=== PATIENT | male | born 1970 | race Caucasian/White ===

== ENCOUNTER 2020-08-23 14:51 | Emergency (ER) | payer SELFPAY ==
[2020-08-23 14:53] VITALS: BP 143/69; PULSE 98; RESP 16; TEMP 37.3; O2SAT 98; BMI 25.7
--- NOTE | 2020-08-23 15:05 | ED_ITS ---
HPI - Skin/Abscess/Foreign Bdy General Chief complaint: Skin/Abscess/Foreign Body Stated complaint: LEFT ARM INFECTION Time Seen by Provider: 08/23/20 15:05 Source: patient Mode of arrival: Ambulatory Limitations: no limitations History of Present Illness HPI narrative: 50-year-old male smoker with history of IV drug abuse presents with the chief complaint of some redness, pain and swelling in his right arm. He states that he has had some small sores without abscess or drainage on his right arm for a few days and also a few days ago he was attempting to inject and thinks he missed the vein. He denies any systemic findings such as fever, chills nor nausea or vomiting. He denies any circumferential involvement but states upon waking this morning it had traveled bit from his right forearm up his arm. He is not dizzy nor weak or lightheaded. He has no chest pain or shortness of breath. MD complaint: other Onset (ago): hour(s) Related Data Previous Rx's Medication Instructions Recorded ferrous sulfate 300 mg PO BID #60 dose 11/21/16 hydrocodone-acetaminophen 10 - 20 ml PO Q4HP PRN #300 ml 11/21/16 ljbdvils-rwn-wpcufab gluconate 9 mg PO QDAY #30 dose 11/21/16 [multivitamin with minerals] doxycycline hyclate 100 mg PO BID #20 tab 08/23/20 Allergies Allergy/AdvReac Type Severity Reaction Status Date / Time Sulfa (Sulfonamide Allergy Mild RASH Unverified 08/23/20 14:57 Antibiotics) [SULFA (SULFONAMIDE ANTIBIOTICS)] carbidopa [From SINEMET] AdvReac Mild JERKY LEG Unverified 08/23/20 14:57 MOVEMENTS levodopa [From SINEMET] AdvReac Mild JERKY LEG Unverified 08/23/20 14:57 MOVEMENTS Review of Systems Constitutional Constitutional: Denies chills, Denies fatigue, Denies fever(s), Denies frequent falls, Denies lethargy and Denies weakness Eyes Eyes: Denies change in vision, Denies eye discharge, Denies irritation and Denies loss of vision ENT Ears, Nose, Mouth, and Throat: Denies change in voice, Denies dizziness, Denies neck pain, Denies sore throat and Denies throat swelling Cardiovascular Cardiovascular: Denies chest pain, Denies irregular heart rhythm, Denies lightheadedness, Denies palpitations, Denies dyspnea, Denies dyspnea on exertion and Denies orthopnea Respiratory Respiratory: Denies cough, Denies dyspnea, Denies dyspnea on exertion and Denies wheezing Gastrointestinal Gastrointestinal: Denies abdominal pain, Denies change in bowel habits, Denies diarrhea, Denies nausea and Denies vomiting Musculoskeletal Musculoskeletal: Denies neck pain and Denies numbness Integumentary/Breasts Skin/Breast: Denies pruritus, Reports erythema, Denies rash, Reports skin pain, Reports skin swelling and Denies wounds Neurologic Neurologic: Denies behavioral changes, Denies confusion, Denies dizziness, Denies frequent falls, Denies loss of vision, Denies numbness and Denies weakness Psychiatric Psychiatric: Denies anxiety, Denies behavioral changes, Denies confusion, Denies depression, Denies homicidal ideation and Denies suicidal ideation Endocrine Endocrine: Denies fatigue, Denies flushing and Denies palpitations Hematologic/Lymphatic Hematologic/Lymphatic: Denies easy bruising Allergic/Immunologic Allergic/Immunologic: Denies urticaria, Denies throat swelling and Denies wheezing Patient History Social History Smoking Status: Current every day smoker Smoking Status: Current every day smoker Substance Use Type: heroin and IV drugs Exam Narrative Exam Narrative: GENERAL: [50] year old patient appears stated age. Well- developed patient, in mild distress. HEAD: Atraumatic. Normocephalic. EYES: Pupils equal round and reactive. Extraocular motions intact. No scleral icterus. No injection or drainage. ENT: Nose without bleeding, purulent drainage. Throat without erythema, tonsillar hypertrophy or exudate. Airway patent. NECK: Trachea midline. Non tender CARDIOVASCULAR: Regular rate and rhythm without murmurs, gallops, or rubs. RESPIRATORY: Clear to auscultation. Breath sounds equal bilaterally. No wheezes, rales, or rhonchi. GASTROINTESTINAL: Abdomen soft, non-tender, nondistended. EXTREMITIES: No edema or joint tenderness. BACK: Nontender without deformity or crepitance. No flank tenderness. NEURO: AOx3. SKIN: Multiple small skin excoriations and wounds, particularly on hands and forearms, none with fluctuance or active drainage. Initial Vital Signs Initial Vital Signs: Vital Signs Temperature 99.1 F 08/23/20 14:53 Pulse Rate 98 H 08/23/20 14:53 Respiratory Rate 16 08/23/20 14:53 Blood Pressure 143/69 H 08/23/20 14:53 Pulse Oximetry 98 08/23/20 14:53 Course Vital Signs Vital signs: Vital Signs - 8 hr 08/23/20 14:53 08/23/20 15:22 Temperature 99.1 F 97.9 F Pulse Rate 98 H 95 H Respiratory Rate 16 16 Blood Pressure 143/69 H 123/67 Pulse Oximetry 98 98 MDM - Skin/Abscess/Foreign Bdy MDM Narrative Medical decision making narrative: Patient with obvious infection, history of IV drug abuse and no systemic findings, no suggestion of sepsis. No palpable induration, fluctuance or other suggestion of need for incision and drainage. Extensive return precautions given and questions answered to his apparent satisfaction Discharge Plan Departure Patient Disposition: Home Clinical Impression: Cellulitis of arm, right Instructions: DI for Cellulitis -- Adult Activity Restrictions/Additional Instructions: *You have been diagnosed with [superficial cellulitis of the right arm, no evidence of abscess.] *What to do: *Please continue to take your regular medications as directed. [ x] New medication prescriptions sent to your pharmacy: [[facility] in [place]] [ ] New medication written as a paper prescription [ ] No new medications given *Please follow up with your primary care provider in 2-3 days, call for an appointment. Let them know you were seen in the Emergency Department and that we ask that you be seen in follow up. We will electronically transmit a record of today's note if your PCP is in our system *If you do not have a primary care provider please contact the [facility] Resource line at [phone]. They will ask some questions about your medical history and help get you set up with a doctor in the community. *Return to Emergency Department if you should have any new, worsening or concerning symptoms, such as [fever greater than 101 F, shaking chills, worsening pain, persistent vomiting, significant worsening of the redness, if the redness and swelling wraps all the way around your upper arm, forearm or involved your hand or other bothersome symptoms] Prescriptions: New doxycycline hyclate 100 mg tablet 100 mg PO BID Qty: 20 RF: 0 No Action ferrous sulfate 300 MG/5 ML liquid 300 mg PO BID Qty: 60 RF: 1 qclsvatn-pfe-ygqntdu gluconate [multivitamin with minerals] 9 MG/15 ML liquid 9 mg PO QDAY Qty: 30 RF: 0 hydrocodone-acetaminophen 7.5 MG/325 MG solution 10 - 20 ml PO Q4HP PRNQty: 300 RF: 0 Referrals: Bonifacio Beach MD [Primary Care Provider] -
--- NOTE | 2020-08-23 15:21 | PC.NURSE ---
Marked cellulitis edges, right upper arm inner, from elbow to axilla.
[2020-08-23 15:22] VITALS: BP 123/67; PULSE 95; RESP 16; TEMP 36.6; O2SAT 98
== END 2020-08-23 15:22 | disposition home or self-care (01) ==
PROVIDERS: Emergency Provider Emergency Medicine; Family Provider Internal Medicine; PCP Internal Medicine
DX: L03.113 Cellulitis of right upper limb (principal)
CPT/HCPCS: 99281

== ENCOUNTER 2021-06-02 20:51 | Emergency (ER) | payer SELFPAY ==
[2021-06-02 20:57] VITALS: BP 131/93; PULSE 101; RESP 16; TEMP 36.9; O2SAT 99; BMI 27.1
--- NOTE | 2021-06-02 21:01 | DI.RAD.S_ITS ---
PROCEDURE: XR CHEST 2V INDICATIONS: shortness of breath TECHNIQUE: 2 views of the chest were acquired. COMPARISON: [facility], , CHEST 2 VIEW, 07/07/2016, 16:25. FINDINGS: Surgical changes and devices: None. Lungs and pleura: Lungs are clear. No pleural effusions or pneumothorax. Mediastinum: Mediastinal contours are normal. Heart size is normal. Bones and chest wall: No suspicious bony abnormalities. Soft tissues appear unremarkable. IMPRESSION: 1. No acute cardiopulmonary disease. Dictated by: Carlos Grigsby M.D. on 06/02/2021 at 23:21 Approved by: Carlos Grigsby M.D. on 06/02/2021 at 23:22
[2021-06-02 21:12] VITALS: O2SAT 95
[2021-06-02 21:13] VITALS: BP 141/81; O2SAT 100
--- NOTE | 2021-06-02 21:24 | ED_ITS ---
HPI - Extremity Problem General Chief complaint: Extremity Problem,Nontraumatic Stated complaint: SWELLING OF LEGS AND SORES Time Seen by Provider: 06/02/21 21:13 Source: patient Mode of arrival: Ambulatory History of Present Illness HPI Narrative: 51-year-old maleNonsmoker with history of IV drug abuse (no longer does) presents with a chief complaint of slowly increasing swelling in lower extremities over the past few weeks, if not months. He feels mildly fatigued but denies any profound shortness of breath and denies any orthopnea. He has had no fever chills. Denies any nausea, vomiting or diarrhea. He has had this happen in the past without any specific diagnosis. He denies any chest pain, dizziness, weakness or lightheadedness. He denies any change in medications. Additionally he has acute on chronic skin excoriations which seemed to be a bit ?angry?, he states that they seem to have flared up a bit since his swelling has increased. He has had skin infections in the past Related Data Previous Rx's Medication Instructions Recorded ferrous sulfate 300 mg (60 mg 300 mg (5 mL) PO BID #60 dose 11/21/16 iron)/5 mL oral liquid hydrocodone 7.5 mg-acetaminophen 10 - 20 ml PO Q4HP PRN #300 ml 11/21/16 325 mg/15 mL oral solution multivit and minerals-ferrous 9 mg (15 mL) PO QDAY #30 dose 11/21/16 gluconate 9 mg iron/15 mL oral liquid (multivitamin with minerals) doxycycline hyclate 100 mg tablet 100 mg PO BID #20 tab 08/23/20 doxycycline hyclate 100 mg tablet 100 mg PO BID #20 tab 06/02/21 furosemide 40 mg tablet (Lasix) 40 mg PO DAILY #7 tab 06/02/21 Allergies Allergy/AdvReac Type Severity Reaction Status Date / Time Sulfa (Sulfonamide Allergy Mild RASH Verified 06/02/21 20:57 Antibiotics) [SULFA (SULFONAMIDE ANTIBIOTICS)] carbidopa [From SINEMET] AdvReac Mild JERKY LEG Verified 06/02/21 20:57 MOVEMENTS levodopa [From SINEMET] AdvReac Mild JERKY LEG Verified 06/02/21 20:57 MOVEMENTS Review of Systems Review of Systems Narrative: GENERAL: Denies chills, fatigue, malaise, fever, sweats. HEENT: Denies sinus pain, ear pain, sore throat, difficulty swallowing, dizziness. RESPIRATORY: Denies dyspnea, cough, wheezing, hemoptysis, sputum. CARDIOVASCULAR: See HPI GASTROINTESTINAL: Denies nausea, vomiting, abdominal pain, diarrhea, constipation, melena. : Denies dysuria, frequency, incontinence, hematuria, urinary retention. MUSCULOSKELETAL: denies weakness, joint pain, or bony pain SKIN: See HPI NEUROLOGIC: Denies weakness, headache, numbness, change in speech, confusion, seizures, incoordination. PSYCHIATRIC: No concerning psychosocial issues. 12 point review of systems is negative except for those stated above Patient History Social History Smoking Status: Never smoker Smoking Status: Never smoker alcohol intake frequency: holidays/special occasions only Substance Use Type: heroin and IV drugs Exam Narrative Exam Narrative: GENERAL: [51 year old patient appears stated age. Well-developed patient, in no obvious distress mild distress. HEAD: Atraumatic. Normocephalic. EYES: Pupils equal round and reactive. Extraocular motions intact. No scleral icterus. No injection or drainage. ENT: Nose without bleeding, purulent drainage. Throat without erythema, tonsillar hypertrophy or exudate. Airway patent. NECK: Trachea midline. Non tender. No JVD CARDIOVASCULAR: Regular rate and rhythm without murmurs, gallops, or rubs. RESPIRATORY: Clear to auscultation. Breath sounds equal bilaterally. No wheezes, rales, or rhonchi. GASTROINTESTINAL: Abdomen soft, non-tender, nondistended. EXTREMITIES: 2+ pitting edema bilateral lower extremities, minimal erythema. BACK: Nontender without deformity or crepitance. No flank tenderness. NEURO: AOx3. SKIN: Multiple excoriations noted on arms and legs with minimal surrounding erythema Initial Vital Signs Initial Vital Signs: Vital Signs Temperature 98.4 F 06/02/21 20:57 Pulse Rate 101 H 06/02/21 20:57 Respiratory Rate 16 06/02/21 20:57 Blood Pressure 131/93 H 06/02/21 20:57 Pulse Oximetry 99 06/02/21 20:57 Course Course Course Narrative: Patient resting comfortably and in no distress. We discussed more advanced techniques for obtaining blood but given his reassuring history, physical vitals and imaging we elected to hold off. He has been given return precautions and questions answered to his apparent satisfaction Orders Ordered: ED Orders 06/02/21 21:01 XR chest 2V Stat EKG-12 Lead Stat Measure peak expiratory flow ONCE RT Consult Eval and Treat Now Discontinued Medications Doxycycline Hyclate (Doxycycline Hyclate 100 Mg Tablet) 100 mg PO NOW ONE Stop: 06/02/21 22:20 Last Admin: 06/02/21 22:28 Dose: 100 mg Documented by: YAIR Furosemide (Furosemide 40 Mg Tablet) 40 mg PO NOW ONE Stop: 06/02/21 22:20 Last Admin: 06/02/21 22:28 Dose: 40 mg Documented by: YAIR Reevaluation(s) Reevaluation #1: patient is a very difficult IV start and is evaluated by multiple nurses and myself. Vital Signs Vital signs: Vital Signs - 8 hr 06/02/21 20:57 06/02/21 21:12 06/02/21 21:13 Temperature 98.4 F Pulse Rate 101 H Respiratory Rate 16 Blood Pressure 131/93 H 141/81 H Pulse Oximetry 99 95 100 06/02/21 23:28 Temperature Pulse Rate 99 H Respiratory Rate 16 Blood Pressure 141/80 H Pulse Oximetry 99 MDM - Extremity (Nontraumatic) Imaging Data Chest x-ray: Radiologist's Impression: Chart Viewer Diagnostics Subcategory All Activity ??:?? All Time ??:?? All Subcategories Filter Laboratory Imaging Microbiology Pathology Blood Bank Tests Cardiovascular Other Specialty DATE TYPE STATUS REF RANGE/AUTHOR Hx 06/02/21 21:01 Chest X-Ray Signed Carlos Grigsby 07/07/16 17:18 Radiology - Historical ? 07/07/16 16:30 Radiology - Historical ? Hector Martínez ED 51, M?1970 MRN#? [id number] [facility],?[facility] ED??? 182.88cm 90.718kg BMI: 27.1kg/m? Extremity Problem,Nontraumatic Acc#? [id number] Resus Status Not Ordered No Hx Avail Special Indicators No Data to Display Home Meds Not Confirmed Prescription Monitoring Program MEDICATIONS (INSTRUCTIONS) LAST TAKEN Active ??doxycycline hyclate ??100 mgPOBID#20 tab doxycycline hyclate 100 mgPOBID#20 tab ??ferrous sulfate ??300 mn1RATOH#60 dose furosemide [Lasix] 40 mgPODAILY#7 tab ??hydrocodone-acetaminophen ??10 - 20 woMHW0OSQQH#300 ml ??wypuipdn-ygo-xurqnrd gluconate [multivitamin with minerals] ??9 mg5MERVGY#30 dose Allergies Sulfa (Sulfonamide Antibiotics) (SULFA (SULFONAMIDE ANTIBIOTICS)) RASH carbidopa (From SINEMET) JERKY LEG MOVEMENTS levodopa (From SINEMET) JERKY LEG MOVEMENTS Problems ? ONSET Edema, peripheral Cellulitis Gastroesophageal reflux disease Pneumonia Atypical pneumonia Anemia, iron deficiency Vital Signs 06/02/21 23:28 BP 141/80?H Pulse 99?H Resp 16? O2 Sat 99? Delivery Room Air? Diagnostics Reports Hector Martínez??51??M??1970 ? Allergy/Adv: Sulfa (Sulfonamide Antibiotics), carbidopa, levodopa (More??) Close Chest X-Ray (Signed) Carlos Grigsby - 06/02/21 Radiology - Historical 07/07/16 Radiology - Historical 07/07/16 [place] [address] XRay Report Signed Patient: Hector Martínez MR#: [id number] : 1970 Acct:[id number] Age/Sex: 51 / M Date of Service: 06/02/21 Loc: Accession Number: [id number] ?? Procedure: XR chest 2V Ordering Provider: Zafar Gomez D.O. PROCEDURE:? XR CHEST 2V ? INDICATIONS:? shortness of breath ? TECHNIQUE:? 2 views of the chest were acquired.? ? COMPARISON:? [facility], , CHEST 2 VIEW, 07/07/2016, 16:25. ? FINDINGS:? ? Surgical changes and devices:? None.? ? Lungs and pleura:? Lungs are clear.? No pleural effusions or pneumothorax.? ? Mediastinum:? Mediastinal contours are normal.? Heart size is normal.? ? Bones and chest wall:? No suspicious bony abnormalities.? Soft tissues appear unremarkable.? ? IMPRESSION:? ? 1.? No acute cardiopulmonary disease. ? ? ? Dictated by: Carlos Grigsby M.D. on 06/02/2021 at 23:21 ? ? Approved by: Carlos Grigsby M.D. on 06/02/2021 at 23:22 ? Discharge Plan Departure Patient Disposition: Home Clinical Impression: Edema, peripheral, Cellulitis Instructions: DI for Wound Infection, Edema Activity Restrictions/Additional Instructions: *You have been diagnosed with [peripheral edema and wound infections. Physical exam vital signs and chest x-ray are very reassuring. *What to do: *Please continue to take your regular medications as directed. [x ] New medication prescriptions sent to your pharmacy: [[facility] ] [ ] New medication written as a paper prescription [ ] No new medications given *Please follow up with your primary care provider in 2-3 days, call for an appointment. Let them know you were seen in the Emergency Department and that we ask that you be seen in follow up. We will electronically transmit a record of today's note if your PCP is in our system *If you do not have a primary care provider please contact the [facility] Resource line at [phone]. They will ask some questions about your medical history and help get you set up with a doctor in the community. *Return to Emergency Department if you should have any new, worsening or concerning symptoms, such as [fever greater than 101 F, shaking chills, worsening pain, persistent vomiting or other bothersome symptoms] Radiographic study has been interpreted by an emergency physician. The official diagnosis by radiology will be performed within the next 24 hours and should there be any change in outcome we will notify you of how to proceed. Prescriptions: New doxycycline hyclate 100 mg tablet 100 mg PO BID Qty: 20 0RF furosemide [Lasix] 40 mg tablet 40 mg PO DAILY Qty: 7 0RF No Action ferrous sulfate 300 MG/5 ML liquid 300 mg PO BID Qty: 60 1RF ofrrbuld-omu-ivqbfeu gluconate [multivitamin with minerals] 9 MG/15 ML liquid 9 mg PO QDAY Qty: 30 0RF hydrocodone-acetaminophen 7.5 MG/325 MG solution 10 - 20 ml PO Q4HP PRNQty: 300 0RF doxycycline hyclate 100 mg tablet 100 mg PO BID Qty: 20 0RF
[2021-06-02] MEDS: FUROSEMIDE 40 MG TABLET PO (22:28)
[2021-06-02] MEDS: DOXYCYCLINE HYCLATE 100 MG TABLET PO (22:28)
[2021-06-02 23:28] VITALS: BP 141/80; PULSE 99; RESP 16; O2SAT 99
== END 2021-06-02 23:28 | disposition home or self-care (01) ==
PROVIDERS: Emergency Provider Emergency Medicine; Family Provider Internal Medicine
DX: R60.0 Localized edema (principal); L03.116 Cellulitis of left lower limb; L03.115 Cellulitis of right lower limb
CPT/HCPCS: 71046; 93005; 99283

== ENCOUNTER 2021-12-17 14:54 | Emergency (ER) | payer SELFPAY ==
[2021-12-17 15:09] VITALS: BP 148/83; PULSE 75; RESP 15; TEMP 36.1; O2SAT 98; BMI 27.1
--- NOTE | 2021-12-17 15:36 | PC.NURSE ---
States that he started having pain 4 days ago - poor dental care - significant swelling to the left side of his face and jaw - states that it started swelling yesterday and increased significantly today - airway patent - able to swallow without concern - states that there is some pain but able to handle secretions without concern - speaking in full clear sentences - denies drainage at the site - c/o irritation to the gums
--- NOTE | 2021-12-17 16:18 | ED.DENTAL ---
HPI - Dental/Oral General Chief complaint: Dental/Oral Stated complaint: Jaw swelling/pain Time Seen by Provider: 12/17/21 15:45 Source: patient Mode of arrival: Ambulatory History of Present Illness HPI Narrative: Patient complains of left facial swelling. He has a broken tooth in the left mandible. He has dental pain, and developed the swelling started 4 days ago. The swelling is increased. He has mild trismus. He denies dysphagia. He has no fever or chills. He denies URI symptoms, sore throat, cough or dyspnea. He has no chest pain. Patient has a history of heroin abuse. Related Data Previous Rx's Medication Instructions Recorded ferrous sulfate 300 mg (60 mg 300 mg (5 mL) PO BID #60 doses 11/21/16 iron)/5 mL oral liquid hydrocodone 7.5 mg-acetaminophen 10 - 20 ml PO Q4HP PRN #300 mL 11/21/16 325 mg/15 mL oral solution multivit and minerals-ferrous 9 mg (15 mL) PO QDAY #30 doses 11/21/16 gluconate 9 mg iron/15 mL oral liquid (multivitamin with minerals) doxycycline hyclate 100 mg tablet 100 mg PO BID #20 tabs 08/23/20 doxycycline hyclate 100 mg tablet 100 mg PO BID #20 tabs 06/02/21 furosemide 40 mg tablet (Lasix) 40 mg PO DAILY #7 tabs 06/02/21 amoxicillin 500 mg capsule 500 mg PO BID #14 caps 12/17/21 Allergies Allergy/AdvReac Type Severity Reaction Status Date / Time Sulfa (Sulfonamide Allergy Mild RASH Verified 12/17/21 15:10 Antibiotics) [SULFA (SULFONAMIDE ANTIBIOTICS)] carbidopa [From SINEMET] AdvReac Mild JERKY LEG Verified 12/17/21 15:10 MOVEMENTS levodopa [From SINEMET] AdvReac Mild JERKY LEG Verified 12/17/21 15:10 MOVEMENTS Review of Systems Constitutional Constitutional: Denies body ache(s), Denies chills and Denies fever(s) Eyes Eyes: Denies blurry vision and Denies change in vision ENT Ears, Nose, Mouth, and Throat: Reports dental pain (See HPI.), Denies vertigo, Denies dizziness, Denies dry mouth, Denies sinus pain and Denies sore throat Cardiovascular Cardiovascular: Denies chest pain, Denies rapid heart rate and Denies irregular heart rhythm Respiratory Respiratory: Denies chest congestion and Denies cough Neurologic Neurologic: Denies vertigo and Denies dizziness Patient History Medical History (Updated 12/17/21 @ 17:25 by Noah Hu MD) Anemia, iron deficiency GERD (gastroesophageal reflux disease) Surgical History (Updated 12/17/21 @ 17:18 by Noah Hu MD) No significant past surgical history Social History Smoking Status: Never smoker Smoking Status: Never smoker alcohol intake frequency: holidays/special occasions only Substance Use Type: heroin and IV drugs Exam Initial Vital Signs Initial Vital Signs: Vital Signs Temperature 96.9 F L 12/17/21 15:09 Pulse Rate 75 12/17/21 15:09 Respiratory Rate 15 12/17/21 15:09 Blood Pressure 148/83 H 12/17/21 15:09 Pulse Oximetry 98 12/17/21 15:09 Oxygen Delivery Method 12/17/21 15:09 Const General: cooperative and other (Unkept) HENMT Head: other (Left facial edema) Mouth: oral mucosae normal and other (Diffuse caries. Fracture at tooth 19. Adjacent dental abscess.) Throat: posterior oropharynx normal Neck Neck: normal visual inspection and No lymphadenopathy Resp Auscultation: clear to auscultation bilaterally Cardio Rate: regular rate Rhythm: regular rhythm Heart Sounds: S1 normal, S2 normal and no murmurs Course Orders Ordered: Discontinued Medications Ceftriaxone Sodium (Ceftriaxone 2,000 Mg Vial) 1,000 mg IM NOW ONE Stop: 12/17/21 20:09 Last Admin: 12/17/21 20:49 Dose: 1,000 mg Documented By: MOIZ Dexamethasone 20 mg/ Sodium (Chloride) 55 mls @ 220 mls/hr IV NOW ONE Stop: 12/17/21 16:58 Last Admin: 12/17/21 19:40 Dose: Not Given Documented By: JOSE L Clindamycin Phosphate (Cleocin) 900 mg in 50 mls @ 50 mls/hr IV NOW ONE Stop: 12/17/21 17:57 Last Admin: 12/17/21 20:13 Dose: Not Given Documented By: JOSE L Ampicillin Sodium/Sulbactam (Sodium 3 gm/ Sodium Chloride) 100 mls @ 100 mls/hr IV NOW ONE Stop: 12/17/21 19:14 Last Admin: 12/17/21 20:13 Dose: Not Given Documented By: JOSE L Dexamethasone 20 mg/ Sodium (Chloride) 52 mls @ 208 mls/hr IV NOW ONE Stop: 12/17/21 19:24 Last Infusion: 12/17/21 20:05 Dose: 0 mls/hr Documented By: JOSE L Admin: 12/17/21 19:40 Dose: 208 mls/hr Documented By: JOSE L Ketorolac Tromethamine (Ketorolac 30 Mg/Ml Vial) 30 mg IV NOW ONE Stop: 12/17/21 16:58 Last Admin: 12/17/21 19:37 Dose: 30 mg Documented By: JOSE L Lidocaine HCl (Lidocaine 1% (Pf) 5 Ml) 4.2 ml INJ NOW ONE Stop: 12/17/21 20:09 Last Admin: 12/17/21 20:49 Dose: 4.2 ml Documented By: MOIZ Vital Signs Vital signs: Vital Signs - 8 hr 12/17/21 15:09 Temperature 96.9 F L Pulse Rate 75 Respiratory Rate 15 Blood Pressure 148/83 H Pulse Oximetry 98 Oxygen Delivery Method Room Air MDM - Dental/Oral Lab Data Result diagrams: 12/17/21 19:00 12/17/21 19:00 Labs: Lab Results 12/17/21 12/17/21 12/17/21 Range/Units 19:00 19:00 19:00 WBC 5.1 (4.5-11.0) X10^3/uL RBC 3.83 L (4.5-5.9) X10^6/uL Hgb 9.9 L (13.5-17.5) g/dL Hct 30.2 L (41-53) % MCV 78.8 L (80-100) fL MCH 25.8 L (26-34) PG MCHC 32.7 (30-36) % RDW 19.7 H (11.6-14.8) % Plt Count 306 (150-400) X10^3/uL Neut % (Auto) 68.1 (50-75) % Lymph % (Auto) 22.4 L (25-40) % [place] % (Auto) 6.9 (3-14) % Eos % (Auto) 1.2 L (2-4) % Baso % (Auto) 1.4 (0-2) % Neut # (Auto) 3400 (7080-5254) /uL Lymph # (Auto) 1100 (1986-9556) /uL [place] # (Auto) 400 (0-900) /uL Eos # (Auto) 100 (0-450) /uL Baso # (Auto) 100 (0-100) /uL Sodium 136 L (137-145) mmol/L Potassium 4.5 (3.4-5.1) mmol/L Chloride 98 (98-107) mmol/L Carbon Dioxide 30 (22-32) mmol/L BUN 12 (9-20) mg/dL Creatinine 0.78 (0.66-1.25) mg/dL Estimated GFR > 60 (>60) mL/min BUN/Creatinine Ratio 15.4 (6-22) Glucose 98 (70-100) mg/dL Lactate 0.8 (0.7-2.1) mmol/L Calcium 8.6 (8.4-10.2) mg/dL Total Bilirubin 0.7 (0.2-1.3) mg/dL AST 63 H (17-59) IU/L ALT 41 (<50) IU/L Alkaline Phosphatase 302 H (38-126) U/L Total Protein 8.0 (6.3-8.2) g/dL Albumin 3.5 (3.5-5.0) g/dL Globulin 4.5 H (1.7-4.1) g/dL Albumin/Globulin Ratio 0.8 L (1.0-2.8) Procalcitonin 0.41 (<0.5) ng/mL Discharge Plan Departure Patient Disposition: Home Clinical Impression: Dental abscess Instructions: Tooth Abscess Activity Restrictions/Additional Instructions: *You have been diagnosed with dental abscess *What to do: You should start to feel better. He received a steroid and an antibiotic. I still recommend that he follow-up with a dentist as soon as possible *Continue to take medications as directed Amoxicillin 500 mg twice a day for 10 days-- SENT TO [facility] [place] *Follow up with your primary care provider in 2-3 days or call [phone] *Return to ER if you should have increasing swelling redness difficulty swallowing neck pain tongue pain or any new, worsening or concerning symptoms Prescriptions: New amoxicillin 500 mg capsule 500 mg PO BID Qty: 14 0RF No Action ferrous sulfate 300 MG/5 ML liquid 300 mg PO BID Qty: 60 1RF [id number]-hsxaikn gluconate [multivitamin with minerals] 9 MG/15 ML liquid 9 mg PO QDAY Qty: 30 0RF hydrocodone-acetaminophen 7.5 MG/325 MG solution 10 - 20 ml PO Q4HP PRNQty: 300 0RF doxycycline hyclate 100 mg tablet 100 mg PO BID Qty: 20 0RF doxycycline hyclate 100 mg tablet 100 mg PO BID Qty: 20 0RF furosemide [Lasix] 40 mg tablet 40 mg PO DAILY Qty: 7 0RF Visit Report Forms: Patient Portal/API
[2021-12-17 17:00] VITALS: TEMP 37
--- NOTE | 2021-12-17 18:17 | PC.NURSE ---
2 IV attempts unsuccessful at 1715 - tolerated well - sites without redness or swelling
--- NOTE | 2021-12-17 19:08 | CM.SWNOTE ---
GPS NAVIGATION INSTALLER Note GPS NAVIGATION INSTALLER receives consult from comb capper due to concern for patient's food and housing insecurity. Patient is 51 y/o male who presents to ED due to concerns for dental pain and lack of dental care. Patient does not have a PCP listed and patient does not have current insurance. Patient has hx of dental abscess, GERD, and Pneumonia. GPS NAVIGATION INSTALLER enters room to meet with patient, patient presents as A/Ox3. Patient endorses he resides in his car, patient endorses he feels safe doing so. GPS NAVIGATION INSTALLER offers patient resources to sign up with state insurance and contact information for both local [facility] dental clinics to establish dental care. Patient denies current food stamps but endorses his friend will help him apply for [facility] welfare services. GPS NAVIGATION INSTALLER asks and offers if GPS NAVIGATION INSTALLER can support patient with anything further and patient denies further needs. Plan: patient to d/c to home upon medical clearance, patient to seek out dental care and f/u with signing up for state insurance. Annie Terrazas, [employer]
[2021-12-17] MEDS: KETOROLAC 30 MG/ML VIAL IV (19:37)
[2021-12-17 19:39] LABS: Add Manual Diff / Slide Review NO; Basophils Absolute Auto 100 /uL (0-100); Basophils Percent Auto 1.4 % (0-2); Eosinophils Absolute Auto 100 /uL (0-450); Eosinophils Percent Auto 1.2 % (2-4); Hematocrit 30.2 % (41-53); Hemoglobin 9.9 g/dL (13.5-17.5); Lymphocytes Absolute Auto 1100 /uL (1100-4500); Lymphocytes Percent Auto 22.4 % (25-40); Mean Corpuscular HGB Conc 32.7 % (30-36); Mean Corpuscular Hemoglobin 25.8 PG (26-34); Mean Corpuscular Volume 78.8 fL (80-100); Monocytes Absolute Auto 400 /uL (0-900); Monocytes Percent Auto 6.9 % (3-14); Neutrophils Absolute Auto 3400 /uL (1500-7000); Neutrophils Percent Auto 68.1 % (50-75); Platelet Count 306 X10^3/uL (150-400); Red Blood Cell Count 3.83 X10^6/uL (4.5-5.9); Red Cell Distribution Width 19.7 % (11.6-14.8); White Blood Cell Count 5.1 X10^3/uL (4.5-11.0)
[2021-12-17] MEDS: dexAMETHasone 20 MG in SODIUM CHLORIDE 0.9% 50 ML 208 MG IV (19:40)
[2021-12-17 20:00] VITALS: BP 143/80; PULSE 69; RESP 18; O2SAT 100
[2021-12-17 20:02] LABS: Lactate (Lactic Acid) 0.8 mmol/L (0.7-2.1)
[2021-12-17 20:03] LABS: Alanine Aminotransferase 41 IU/L (<50); Albumin 3.5 g/dL (3.5-5.0); Albumin Globulin Ratio 0.8 (1.0-2.8); Alkaline Phosphatase 302 U/L (38-126); Aspartate Aminotransferase 63 IU/L (17-59); BUN Creatinine Ratio 15.4 (6-22); Bilirubin Total 0.7 mg/dL (0.2-1.3); Blood Urea Nitrogen 12 mg/dL (9-20); Calcium 8.6 mg/dL (8.4-10.2); Carbon Dioxide 30 mmol/L (22-32); Chloride 98 mmol/L (98-107); Estimated Glomerular Filt Rate > 60 mL/min (>60); Globulin 4.5 g/dL (1.7-4.1); Glucose 98 mg/dL (70-100); HEMOLYSIS < 15 (0-50); Potassium 4.5 mmol/L (3.4-5.1); Sodium 136 mmol/L (137-145)
[2021-12-17 20:20] LABS: Procalcitonin 0.41 ng/mL (<0.5)
[2021-12-17] MEDS: LIDOCAINE 1% (PF) 5 ML 4.2 ML INJ (20:49)
[2021-12-17] MEDS: cefTRIAXone 2,000 MG VIAL 1000 MG IM (20:49)
--- NOTE | 2021-12-17 21:07 | PC.NURSE ---
At 2004 the decadron infusion completed - pt c/o pain to the IV insertion site - site feels softer than prior to infusion - site double checked with Jaz SCHOFIELD - opal Tan MD notified - IV to be DC'd and orders for medication (ABX) changed
== END 2021-12-17 21:08 | disposition home or self-care (01) ==
PROVIDERS: Emergency Provider Emergency Medicine; Family Provider Internal Medicine
DX: K04.7 Periapical abscess without sinus (principal)
CPT/HCPCS: 36415; 80053; 83605; 84145; 85025; 87040; 96365; 96372; 96375; 99284; J0696; J1100; J1885

== ENCOUNTER 2023-07-24 05:43 | Observation (INO) | payer SELFPAY ==
[2023-07-24] VITALS (36 sets, daily range): BP systolic 99–133; BP diastolic 55–84; PULSE 59–84; RESP 11–27; TEMP 35.9–36.7; O2SAT 94–100; BMI 25.7; BMI 28.0
--- NOTE | 2023-07-24 06:33 | PC.NURSE ---
left lower ext. is red and swollen with an felix tennis ball size opened area to the lower orta that is draining purulent drainage, right leg is red and swollen with out any open areas noted, pt states the right leg has always bee swollen but now the left leg is swollen and painful.
--- NOTE | 2023-07-24 06:43 | ED_ITS ---
HPI - Extremity Problem <Yoshi Chris MD - Last Filed: 07/25/23 16:24> General Chief complaint: Extremity Problem,Nontraumatic Stated complaint: left leg infection Time Seen by Provider: 07/24/23 06:23 Source: patient Mode of arrival: Ambulatory History of Present Illness HPI Narrative: 53-year-old male complains of chronic swelling to right leg for years, but 10 days increasing new swelling to left leg, with eruption of skin blistering and weeping distal foreleg that seems to be saturating his jeans pant on that side. No injury or trauma recalled. He does not recall any history of congestive heart failure, renal failure, liver disease. He denies known clots to legs or lungs. Left leg is painful, he would like pain medication. He also has had left dorsal left hand swelling, denies fight bite or other blunt trauma, denies eczema, but noticed increased redness over the last few days. Remote history of IV drug use, denies recent drug use. First-time evaluation for this more recent left lower extremity redness and pain and weepiness, prior admissions for right leg infection reported. Related Data Home Medications Medication Instructions Recorded Confirmed No Known Home Medications 07/24/23 07/24/23 Allergies Allergy/AdvReac Type Severity Reaction Status Date / Time Sulfa (Sulfonamide Allergy Mild RASH Verified 12/17/21 15:10 Antibiotics) [SULFA (SULFONAMIDE ANTIBIOTICS)] carbidopa [From [facility]] AdvReac Mild JERKY LEG Verified 12/17/21 15:10 MOVEMENTS levodopa [From S[facility]EMET] AdvReac Mild JERKY LEG Verified 12/17/21 15:10 MOVEMENTS Review of Systems <Yoshi Chris MD - Last Filed: 07/25/23 16:24> Constitutional Constitutional: Denies chills, Denies fever(s) and Denies weakness Eyes Eyes: Denies irritation ENT Ears, Nose, Mouth, and Throat: Denies neck pain Cardiovascular Cardiovascular: Denies chest pain and Denies dyspnea Respiratory Respiratory: Denies cough and Denies dyspnea Gastrointestinal Gastrointestinal: Denies nausea and Denies vomiting Musculoskeletal Musculoskeletal: Denies neck pain Integumentary/Breasts Comments: Erythema to mid distal left foreleg with anterior mid distal area proximally 10 x 6 cm shallow ulceration with clear weeping fluid. Significant swelling to left lower extremity, about similar size to chronically swollen right lower extremity. Right lower extremity has venous stasis like changes, dried scale but no weeping open wounds or ulceration, not as erythematous as the left lower extremity. Left upper extremity shows some swelling and redness to the dorsum of the left hand, although he is able to flex with closed fist and fully extend at MCPs and fingers. No abrasions or lacerations or puncture noted on the hand. Neurologic Neurologic: Denies weakness Allergic/Immunologic Allergic/Immunologic: Denies urticaria Patient History <Yoshi Chris MD - Last Filed: 07/25/23 16:24> Medical History (Updated 07/24/23 @ 15:21 by Linda Grimes DO) GERD (gastroesophageal reflux disease) Anemia, iron deficiency Surgical History (Updated 12/17/21 @ 17:18 by Noah Hu MD) No significant past surgical history Social History household members: none Smoking Status: Never smoker Smoking Status: Never smoker alcohol intake frequency: holidays/special occasions only Substance Use Type: heroin and IV drugs Exam <Yoshi Chris MD - Last Filed: 07/25/23 16:24> Initial Vital Signs Initial Vital Signs: Vital Signs Temperature 97.3 F L 07/24/23 06:04 Pulse Rate 84 07/24/23 06:04 Respiratory Rate 18 07/24/23 06:04 Blood Pressure 123/77 07/24/23 06:04 Pulse Oximetry 100 07/24/23 06:04 Oxygen Delivery Method Room Air 07/24/23 06:04 Const General: cooperative HENWY Head: atraumatic Face and sinus: face symmetric Mouth: oral mucosae normal Eyes Conjunctivae: conjunctivae normal Sclera: sclerae normal Neck Neck: normal visual inspection Resp Effort & Inspection: normal respiratory effort and no respiratory distress Auscultation: no rhonchi Cardio Rate: regular rate Skin Other: Left anterior foreleg redness and shallow ulceration anteriorly, with clear discharge weeping Neuro General: gait normal Extrem Other: Bilateral lower extremity significant edema, apparently chronic on the right- hand side, on the left side is more recent, about the same size today, with erythema, and distal 3rd anterior shallow ulceration approximately 8 x 5 cm, no purulence, but clear fluid draining. He can dorsiflex and plantar flex at the left ankle Psych Attitude: cooperative <Linda Grimes DO - Last Filed: 07/24/23 19:02> Initial Vital Signs Initial Vital Signs: Vital Signs Temperature 97.3 F L 07/24/23 06:04 Pulse Rate 84 07/24/23 06:04 Respiratory Rate 18 07/24/23 06:04 Blood Pressure 123/77 07/24/23 06:04 Pulse Oximetry 100 07/24/23 06:04 Oxygen Delivery Method Room Air 07/24/23 06:04 Course <Yoshi Chris MD - Last Filed: 07/25/23 16:24> Course Course Narrative: Patient presenting with oozing left anterior leg wound with swelling, chronic right leg swelling, also left dorsal hand swelling. Labs pending from triage, possible infection, wound culture by nursing from weeping left leg wound. Signed out to oncoming ED physician Dr. Grimes Orders Ordered: Acetaminophen (Acetaminophen 325 Mg Tablet) 975 mg PO Q6HR PRN PRN Reason: Fever/Mild Pain (1-3) Last Admin: 07/24/23 16:30 Dose: 975 mg Documented By: BT Clonidine HCl (Clonidine 0.1 Mg Tablet) 0.1 mg PO BID COUNTS INCLUDE 234 BEDS AT THE [facility] Last Admin: 07/25/23 07:42 Dose: 0.1 mg Documented By: Admin: 07/24/23 20:44 Dose: 0.1 mg Documented By: Admin: 07/24/23 18:08 Dose: 0.1 mg Documented By: CW Enoxaparin Sodium (Enoxaparin 40 Mg/0.4 Ml Syringe) 40 mg SUBCUT DAILY COUNTS INCLUDE 234 BEDS AT THE [facility] Last Admin: 07/25/23 08:47 Dose: Not Given Documented By: LDV Ceftriaxone Sodium 2,000 mg/ (Sodium Chloride) 100 mls @ 200 mls/hr IV Q24H COUNTS INCLUDE 234 BEDS AT THE [facility] Stop: 07/29/23 09:01 Last Admin: 07/25/23 08:50 Dose: 200 mls/hr Documented By: LDV Vancomycin HCl/Dextrose (Vancomycin) 1,500 mg in 300 mls @ 200 mls/hr IV Q12H COUNTS INCLUDE 234 BEDS AT [facility] Last Admin: 07/25/23 14:45 Dose: 200 mls/hr Documented By: Infusion: 07/25/23 04:00 Dose: Infused Documented By: Admin: 07/25/23 02:30 Dose: 200 mls/hr Documented By: SR Melatonin (Melatonin 3 Mg Tablet) 6 mg PO BEDTIME PRN PRN Reason: Insomnia Methadone HCl (Methadone 10 Mg Tablet) 40 mg PO DAILY COUNTS INCLUDE 234 BEDS AT [facility] Last Admin: 07/25/23 07:42 Dose: 40 mg Documented By: Admin: 07/24/23 18:08 Dose: 40 mg Documented By: VICTORINO Naloxone HCl (Naloxone 0.4 Mg/Ml Vial) 0.2 mg IV Q2MIN PRN PRN Reason: Opiate Reversal Ondansetron HCl (Ondansetron 4 Mg/2 Ml Inj) 4 mg IV NOW PRN PRN Reason: Nausea And Vomiting Ondansetron HCl (Ondansetron 4 Mg Odt) 4 mg SL NOW PRN PRN Reason: Nausea And Vomiting Ondansetron HCl (Ondansetron 4 Mg/2 Ml Inj) 4 mg IV Q8HR PRN PRN Reason: Nausea And Vomiting Oxycodone HCl (Oxycodone Ir 5 Mg Tablet) 10 mg PO Q4HRWA COUNTS INCLUDE 234 BEDS AT [facility] Last Admin: 07/25/23 12:46 Dose: 10 mg Documented By: Admin: 07/25/23 05:00 Dose: 10 mg Documented By: Admin: 07/24/23 20:45 Dose: 10 mg Documented By: Admin: 07/24/23 18:32 Dose: Not Given Documented By: BT Polyethylene Glycol (Polyethylene Glycol 3350 17 Gm Powd.Pack) 17 gm PO DAILY PRN PRN Reason: Constipation Sennosides (Sennosides 8.6 Mg Tablet) 8.6 mg PO BID PRN PRN Reason: Constipation Vancomycin HCl (Vancomycin Per Pharmacy) 1 request MISC NOW PRN PRN Reason: PROTOCOL Vancomycin HCl (Vancomycin Trough) 1 request MISC 0130 COUNTS INCLUDE 234 BEDS AT [facility] Stop: 07/26/23 01:31 Discontinued Medications Hydromorphone HCl (Hydromorphone 0.5 Mg Inj) 0.5 mg IV Q4H PRN PRN Reason: Pain, Moderate (4-6) Sodium Chloride (Normal Saline 0.9%) 1,000 mls @ 1,000 mls/hr IV BOLUS ONE Stop: 07/24/23 07:49 Last Infusion: 07/24/23 15:34 Dose: Infused Documented By: Admin: 07/24/23 13:17 Dose: 1,000 mls/hr Documented By: UMANG Vancomycin HCl (Vancomycin) 1,250 mg in 250 mls @ 250 mls/hr IV NOW ONE Stop: 07/24/23 08:29 Last Infusion: 07/24/23 15:34 Dose: Infused Documented By: Admin: 07/24/23 14:02 Dose: 250 mls/hr Documented By: UMANG Ceftriaxone Sodium 2,000 mg/ (Sodium Chloride) 100 mls @ 200 mls/hr IV NOW ONE Stop: 07/24/23 07:30 Last Infusion: 07/24/23 14:03 Dose: Infused Documented By: Admin: 07/24/23 13:18 Dose: 200 mls/hr Documented By: UMANG Morphine Sulfate (Morphine 4 Mg/Ml Inj) 4 mg IV Q4HR PRN PRN Reason: Pain, Severe (7-10) Last Admin: 07/24/23 15:40 Dose: 4 mg Documented By: UMANG Oxycodone HCl (Oxycodone Ir 5 Mg Tablet) 5 mg PO Q4HR PRN PRN Reason: Pain, Moderate (4-6) Last Admin: 07/24/23 16:30 Dose: 5 mg Documented By: PASCUAL Oxycodone HCl (Oxycodone Ir 5 Mg Tablet) 10 mg PO Q4HR PRN PRN Reason: Pain, Moderate (4-6) Oxycodone HCl (Oxycodone Ir 5 Mg Tablet) 10 mg PO Q4HR ALBERT Oxycodone/Acetaminophen (Oxycodone/Acetaminophen 5/325 Tablet) 2 tab PO NOW ONE Stop: 07/24/23 07:30 Last Admin: 07/24/23 07:42 Dose: 2 tab Documented By: RB Vital Signs Vital signs: Vital Signs - 8 hr 07/24/23 11:16 07/24/23 11:20 07/24/23 11:20 Temperature Pulse Rate 67 64 Pulse Rate [Left Dorsalis Pedis] Respiratory Rate 22 Blood Pressure 99/55 L Pulse Oximetry 99 99 07/24/23 11:22 07/24/23 11:22 07/24/23 11:23 Temperature 98.0 F Pulse Rate 62 Pulse Rate [Left Dorsalis Pedis] Respiratory Rate 13 Blood Pressure 119/59 L Pulse Oximetry 99 07/24/23 11:25 07/24/23 11:30 07/24/23 11:30 Temperature Pulse Rate 65 Pulse Rate [Left Dorsalis Pedis] 64 Respiratory Rate 23 Blood Pressure 112/67 Pulse Oximetry 99 07/24/23 11:54 07/24/23 11:54 07/24/23 12:00 Temperature Pulse Rate 63 63 Pulse Rate [Left Dorsalis Pedis] Respiratory Rate 18 17 Blood Pressure 120/68 Pulse Oximetry 100 100 07/24/23 12:00 07/24/23 12:15 07/24/23 12:15 Temperature Pulse Rate 62 Pulse Rate [Left Dorsalis Pedis] Respiratory Rate 11 L Blood Pressure 122/67 116/66 Pulse Oximetry 100 07/24/23 12:30 07/24/23 12:30 07/24/23 12:45 Temperature Pulse Rate 61 59 L Pulse Rate [Left Dorsalis Pedis] Respiratory Rate 18 24 Blood Pressure 122/69 Pulse Oximetry 100 100 07/24/23 12:45 Temperature Pulse Rate Pulse Rate [Left Dorsalis Pedis] Respiratory Rate Blood Pressure 119/69 Pulse Oximetry <Linda Grimes, DO - Last Filed: 07/24/23 19:02> Orders Ordered: Acetaminophen (Acetaminophen 325 Mg Tablet) 975 mg PO Q6HR PRN PRN Reason: Fever/Mild Pain (1-3) Last Admin: 07/24/23 16:30 Dose: 975 mg Documented By: BT Clonidine HCl (Clonidine 0.1 Mg Tablet) 0.1 mg PO BID COUNTS INCLUDE 234 BEDS AT [facility] Last Admin: 07/25/23 07:42 Dose: 0.1 mg Documented By: Admin: 07/24/23 20:44 Dose: 0.1 mg Documented By: Admin: 07/24/23 18:08 Dose: 0.1 mg Documented By: CW Enoxaparin Sodium (Enoxaparin 40 Mg/0.4 Ml Syringe) 40 mg SUBCUT DAILY COUNTS INCLUDE 234 BEDS AT [facility] Last Admin: 07/25/23 08:47 Dose: Not Given Documented By: LDV Ceftriaxone Sodium 2,000 mg/ (Sodium Chloride) 100 mls @ 200 mls/hr IV Q24H COUNTS INCLUDE 234 BEDS AT [facility] Stop: 07/29/23 09:01 Last Admin: 07/25/23 08:50 Dose: 200 mls/hr Documented By: LDV Vancomycin HCl/Dextrose (Vancomycin) 1,500 mg in 300 mls @ 200 mls/hr IV Q12H COUNTS INCLUDE 234 BEDS AT [facility] Last Admin: 07/25/23 14:45 Dose: 200 mls/hr Documented By: Infusion: 07/25/23 04:00 Dose: Infused Documented By: Admin: 07/25/23 02:30 Dose: 200 mls/hr Documented By: SR Melatonin (Melatonin 3 Mg Tablet) 6 mg PO BEDTIME PRN PRN Reason: Insomnia Methadone HCl (Methadone 10 Mg Tablet) 40 mg PO DAILY COUNTS INCLUDE 234 BEDS AT [facility] Last Admin: 07/25/23 07:42 Dose: 40 mg Documented By: Admin: 07/24/23 18:08 Dose: 40 mg Documented By: CW Naloxone HCl (Naloxone 0.4 Mg/Ml Vial) 0.2 mg IV Q2MIN PRN PRN Reason: Opiate Reversal Ondansetron HCl (Ondansetron 4 Mg/2 Ml Inj) 4 mg IV NOW PRN PRN Reason: Nausea And Vomiting Ondansetron HCl (Ondansetron 4 Mg Odt) 4 mg SL NOW PRN PRN Reason: Nausea And Vomiting Ondansetron HCl (Ondansetron 4 Mg/2 Ml Inj) 4 mg IV Q8HR PRN PRN Reason: Nausea And Vomiting Oxycodone HCl (Oxycodone Ir 5 Mg Tablet) 10 mg PO Q4HRWA COUNTS INCLUDE 234 BEDS AT [facility] Last Admin: 07/25/23 12:46 Dose: 10 mg Documented By: Admin: 07/25/23 05:00 Dose: 10 mg Documented By: Admin: 07/24/23 20:45 Dose: 10 mg Documented By: Admin: 07/24/23 18:32 Dose: Not Given Documented By: BT Polyethylene Glycol (Polyethylene Glycol 3350 17 Gm Powd.Pack) 17 gm PO DAILY PRN PRN Reason: Constipation Sennosides (Sennosides 8.6 Mg Tablet) 8.6 mg PO BID PRN PRN Reason: Constipation Vancomycin HCl (Vancomycin Per Pharmacy) 1 request MISC NOW PRN PRN Reason: PROTOCOL Vancomycin HCl (Vancomycin Trough) 1 request MISC 0130 COUNTS INCLUDE 234 BEDS AT [facility] Stop: 07/26/23 01:31 Discontinued Medications Hydromorphone HCl (Hydromorphone 0.5 Mg Inj) 0.5 mg IV Q4H PRN PRN Reason: Pain, Moderate (4-6) Sodium Chloride (Normal Saline 0.9%) 1,000 mls @ 1,000 mls/hr IV BOLUS ONE Stop: 07/24/23 07:49 Last Infusion: 07/24/23 15:34 Dose: Infused Documented By: Admin: 07/24/23 13:17 Dose: 1,000 mls/hr Documented By: UMANG Vancomycin HCl (Vancomycin) 1,250 mg in 250 mls @ 250 mls/hr IV NOW ONE Stop: 07/24/23 08:29 Last Infusion: 07/24/23 15:34 Dose: Infused Documented By: Admin: 07/24/23 14:02 Dose: 250 mls/hr Documented By: UMANG Ceftriaxone Sodium 2,000 mg/ (Sodium Chloride) 100 mls @ 200 mls/hr IV NOW ONE Stop: 07/24/23 07:30 Last Infusion: 07/24/23 14:03 Dose: Infused Documented By: Admin: 07/24/23 13:18 Dose: 200 mls/hr Documented By: UMANG Morphine Sulfate (Morphine 4 Mg/Ml Inj) 4 mg IV Q4HR PRN PRN Reason: Pain, Severe (7-10) Last Admin: 07/24/23 15:40 Dose: 4 mg Documented By: UMANG Oxycodone HCl (Oxycodone Ir 5 Mg Tablet) 5 mg PO Q4HR PRN PRN Reason: Pain, Moderate (4-6) Last Admin: 07/24/23 16:30 Dose: 5 mg Documented By: PASCUAL Oxycodone HCl (Oxycodone Ir 5 Mg Tablet) 10 mg PO Q4HR PRN PRN Reason: Pain, Moderate (4-6) Oxycodone HCl (Oxycodone Ir 5 Mg Tablet) 10 mg PO Q4HR COUNTS INCLUDE 234 BEDS AT [facility] Oxycodone/Acetaminophen (Oxycodone/Acetaminophen 5/325 Tablet) 2 tab PO NOW ONE Stop: 07/24/23 07:30 Last Admin: 07/24/23 07:42 Dose: 2 tab Documented By: RB Vital Signs Vital signs: Vital Signs - 8 hr 07/24/23 11:16 07/24/23 11:20 07/24/23 11:20 Temperature Pulse Rate 67 64 Pulse Rate [Left Dorsalis Pedis] Respiratory Rate 22 Blood Pressure 99/55 L Pulse Oximetry 99 99 07/24/23 11:22 07/24/23 11:22 07/24/23 11:23 Temperature 98.0 F Pulse Rate 62 Pulse Rate [Left Dorsalis Pedis] Respiratory Rate 13 Blood Pressure 119/59 L Pulse Oximetry 99 07/24/23 11:25 07/24/23 11:30 07/24/23 11:30 Temperature Pulse Rate 65 Pulse Rate [Left Dorsalis Pedis] 64 Respiratory Rate 23 Blood Pressure 112/67 Pulse Oximetry 99 07/24/23 11:54 07/24/23 11:54 07/24/23 12:00 Temperature Pulse Rate 63 63 Pulse Rate [Left Dorsalis Pedis] Respiratory Rate 18 17 Blood Pressure 120/68 Pulse Oximetry 100 100 07/24/23 12:00 07/24/23 12:15 07/24/23 12:15 Temperature Pulse Rate 62 Pulse Rate [Left Dorsalis Pedis] Respiratory Rate 11 L Blood Pressure 122/67 116/66 Pulse Oximetry 100 07/24/23 12:30 07/24/23 12:30 07/24/23 12:45 Temperature Pulse Rate 61 59 L Pulse Rate [Left Dorsalis Pedis] Respiratory Rate 18 24 Blood Pressure 122/69 Pulse Oximetry 100 100 07/24/23 12:45 Temperature Pulse Rate Pulse Rate [Left Dorsalis Pedis] Respiratory Rate Blood Pressure 119/69 Pulse Oximetry MDM - Extremity (Nontraumatic) <Yoshi Chris MD - Last Filed: 07/25/23 16:24> Lab Data 07/25/23 06:15 07/25/23 06:15 Labs: Lab Results 07/24/23 07/24/23 Range/Units 09:53 11:35 WBC 2.6 L (4.5-11.0) X10^3/uL RBC 3.40 L (4.5-5.9) X10^6/uL Hgb 8.2 L (13.5-17.5) g/dL Hct 25.8 L (41-53) % MCV 75.7 L (80-100) fL MCH 24.1 L (26-34) PG MCHC 31.8 (30-36) % RDW 18.3 H (11.6-14.8) % Plt Count 151 (150-400) X10^3/uL Neut % (Auto) 68.1 (50-75) % Lymph % (Auto) 21.3 L (25-40) % [place] % (Auto) 8.9 (3-14) % Eos % (Auto) 0.9 L (2-4) % Baso % (Auto) 0.8 (0-2) % Neut # (Auto) 1800 (9919-9883) /uL Lymph # (Auto) 500 L (1261-3376) /uL [place] # (Auto) 200 (0-900) /uL Eos # (Auto) 0 (0-450) /uL Baso # (Auto) 0 (0-100) /uL PT 14.3 H (9.4-12.5) SECONDS INR 1.2 (0.9-1.3) APTT 44 H (25.1-36.5) SECONDS Sodium 136 L (137-145) mmol/L Potassium 4.2 (3.4-5.1) mmol/L Chloride 108 H (98-107) mmol/L Carbon Dioxide 26 (22-32) mmol/L BUN 19 (9-20) mg/dL Creatinine 0.84 (0.66-1.25) mg/dL Estimated GFR > 60 (>60) mL/min BUN/Creatinine Ratio 22.6 H (6-22) Glucose 93 (70-100) mg/dL Lactate 0.8 (0.7-2.1) mmol/L Calcium 7.8 L (8.4-10.2) mg/dL Magnesium 2.0 (1.6-2.3) mg/dL Total Bilirubin 0.5 (0.2-1.3) mg/dL AST 50 (17-59) IU/L ALT 24 (<50) IU/L Alkaline Phosphatase 85 (38-126) U/L Total Creatine Kinase 82 (55-170) U/L Troponin I < 0.012 (0.01-0.034) ng/mL NT-Pro-B Natriuret Pep 165 H (<125) pg/mL Total Protein 6.4 (6.3-8.2) g/dL Albumin 2.6 L (3.5-5.0) g/dL Globulin 3.8 (1.7-4.1) g/dL Albumin/Globulin Ratio 0.7 L (1.0-2.8) Lipase 111 (23-300) U/L Procalcitonin 0.36 (<0.5) ng/mL Urine Color Yellow Urine Appearance Clear Urine pH 8.5 H (4.5-8.0) Ur Specific [place] 1.015 (1.000-1.035) Urine Protein Trace H (Negative) Urine Glucose (UA) Negative (Negative) g/dL Urine Ketones Negative (NEGATIVE) Urine Occult Blood Negative (Negative) Urine Nitrate Positive H (Negative) Urine Bilirubin Negative (NEGATIVE) Urine Urobilinogen 0.2 (0.2) E.U./dL Ur Leukocyte Esterase 1+ H (NEGATIVE) Urine RBC 0-1/hpf (0-5/HPF) Urine WBC 5-10/hpf H (0-5/HPF) Ur Squamous Epith Cells 0-1 /hpf (0-5/HPF) Urine Bacteria Many (>30) H (None) Ur Culture Indicated? Specimen cultured Vol Urine Centrifuged 10ml (spun) Urine Dip Bedside Urine Glucose Negative Bedside Urine Bilirubin - Negative Bedside Urine Ketone - Negative Urine Specific [place] 1.010 Bedside Urine Occult Blood - Negative Bedside Urine pH 7.5 Bedside Urine Protein +/- 15 Bedside Urine Urobilinogen - Negative Bedside Urine Nitrite - Negative Bedside Urine Leukocytes + 70 Esterase <Linda Grimes, DO - Last Filed: 07/24/23 19:02> Lab Data Labs: Lab Results 07/24/23 07/24/23 Range/Units 09:53 11:35 WBC 2.6 L (4.5-11.0) X10^3/uL RBC 3.40 L (4.5-5.9) X10^6/uL Hgb 8.2 L (13.5-17.5) g/dL Hct 25.8 L (41-53) % MCV 75.7 L (80-100) fL MCH 24.1 L (26-34) PG MCHC 31.8 (30-36) % RDW 18.3 H (11.6-14.8) % Plt Count 151 (150-400) X10^3/uL Neut % (Auto) 68.1 (50-75) % Lymph % (Auto) 21.3 L (25-40) % [place] % (Auto) 8.9 (3-14) % Eos % (Auto) 0.9 L (2-4) % Baso % (Auto) 0.8 (0-2) % Neut # (Auto) 1800 (6623-2862) /uL Lymph # (Auto) 500 L (5920-3826) /uL [place] # (Auto) 200 (0-900) /uL Eos # (Auto) 0 (0-450) /uL Baso # (Auto) 0 (0-100) /uL PT 14.3 H (9.4-12.5) SECONDS INR 1.2 (0.9-1.3) APTT 44 H (25.1-36.5) SECONDS Sodium 136 L (137-145) mmol/L Potassium 4.2 (3.4-5.1) mmol/L Chloride 108 H (98-107) mmol/L Carbon Dioxide 26 (22-32) mmol/L BUN 19 (9-20) mg/dL Creatinine 0.84 (0.66-1.25) mg/dL Estimated GFR > 60 (>60) mL/min BUN/Creatinine Ratio 22.6 H (6-22) Glucose 93 (70-100) mg/dL Lactate 0.8 (0.7-2.1) mmol/L Calcium 7.8 L (8.4-10.2) mg/dL Magnesium 2.0 (1.6-2.3) mg/dL Total Bilirubin 0.5 (0.2-1.3) mg/dL AST 50 (17-59) IU/L ALT 24 (<50) IU/L Alkaline Phosphatase 85 (38-126) U/L Total Creatine Kinase 82 (55-170) U/L Troponin I < 0.012 (0.01-0.034) ng/mL NT-Pro-B Natriuret Pep 165 H (<125) pg/mL Total Protein 6.4 (6.3-8.2) g/dL Albumin 2.6 L (3.5-5.0) g/dL Globulin 3.8 (1.7-4.1) g/dL Albumin/Globulin Ratio 0.7 L (1.0-2.8) Lipase 111 (23-300) U/L Procalcitonin 0.36 (<0.5) ng/mL Urine Color Yellow Urine Appearance Clear Urine pH 8.5 H (4.5-8.0) Ur Specific [place] 1.015 (1.000-1.035) Urine Protein Trace H (Negative) Urine Glucose (UA) Negative (Negative) g/dL Urine Ketones Negative (NEGATIVE) Urine Occult Blood Negative (Negative) Urine Nitrate Positive H (Negative) Urine Bilirubin Negative (NEGATIVE) Urine Urobilinogen 0.2 (0.2) E.U./dL Ur Leukocyte Esterase 1+ H (NEGATIVE) Urine RBC 0-1/hpf (0-5/HPF) Urine WBC 5-10/hpf H (0-5/HPF) Ur Squamous Epith Cells 0-1 /hpf (0-5/HPF) Urine Bacteria Many (>30) H (None) Ur Culture Indicated? Specimen cultured Vol Urine Centrifuged 10ml (spun) Urine Dip Bedside Urine Glucose Negative Bedside Urine Bilirubin - Negative Bedside Urine Ketone - Negative Urine Specific [place] 1.010 Bedside Urine Occult Blood - Negative Bedside Urine pH 7.5 Bedside Urine Protein +/- 15 Bedside Urine Urobilinogen - Negative Bedside Urine Nitrite - Negative Bedside Urine Leukocytes + 70 Esterase Imaging Data Chest x-ray: Radiologist's Impression: [address] [address] XRay Report Signed Patient: Hector Martínez MR#: [id number] : 1970 Acct:[id number] Age/Sex: 53 / M Date of Service: 07/24/23 Loc: ED Accession Number: [id number] Procedure: XR chest 1V Ordering Provider: Yoshi Chris MD PROCEDURE: XR CHEST 1V INDICATIONS: suspected sepsis TECHNIQUE: One view of the chest was acquired. COMPARISON: [facility], , XR CHEST 2V, 06/02/2021, 20:51. FINDINGS: Surgical changes and devices: None. Lungs and pleura: Lungs are clear. No pleural effusions or pneumothorax. Mediastinum: Mediastinal contours appear normal. Heart size is normal. Bones and chest wall: No suspicious bony lesions. Overlying soft tissues appear unremarkable. IMPRESSION: No acute pulmonary process. Dictated by: Mariana Huang M.D. on 07/24/2023 at 8:09 Approved by: Mariana Huang M.D. on 07/24/2023 at 8:09 CXR post PICC: Radiologist's Impression: [address] [address] XRay Report? Signed Patient: Sandi Cerrato MR#: [id number] : 10/30/1955 Acct:[id number] Age/Sex: 67 / F Date of Service: 07/24/23 Loc: Accession Number: [id number]? ? Procedure: XR chest 1V Ordering Provider: Linda Grimes D.O. PROCEDURE:? XR CHEST 1V ? INDICATIONS:? chest pain ? TECHNIQUE:? One view of the chest was acquired.?? ? COMPARISON:? None. ? FINDINGS:?? ? Surgical changes and devices:? None.?? ? Lungs and pleura:? Lungs are clear.? No pleural effusions or pneumothorax.?? ? Mediastinum:? Mediastinal contours appear normal.? Heart size is normal.?? ? Bones and chest wall:? No suspicious bony lesions.? Overlying soft tissues appear? unremarkable.? IMPRESSION:?? ? No acute cardiopulmonary abnormality is seen.? Approved by: Darrell Bardales M.D. on 07/24/2023 at 11:08?? US - DVT: Radiologist's Impression: [place] [address] Ultrasound Report Signed Patient: Hector Martínez MR#: [id number] : 1970 Acct:[id number] Age/Sex: 53 / M Date of Service: 07/24/23 Loc: 90B-1 Accession Number: [id number] Procedure: US periph venous low extrem bi Ordering Provider: Linda Grimes D.O. PROCEDURE: US PERIPH VENOUS LOW EXTREM BI INDICATIONS: leg swelling b/l TECHNIQUE: Real-time imaging, as well as color and pulse Doppler interrogation, were performed of the deep veins of both legs from the inguinal ligament to the popliteal fossa, with documentation of the visualized calf veins. COMPARISON: [facility], , XR CHEST FOR PICC 1V, 07/24/2023, 12:21. FINDINGS: Right: The common femoral, femoral, popliteal, and the visualized calf veins are normally compressible, and free of intraluminal thrombus. Color and pulse Doppler demonstrate normal phasic intravascular flow. There is normal augmentation response to distal compression maneuver. Left: The common femoral, femoral, popliteal, and the visualized calf veins are normally compressible, and free of intraluminal thrombus. Color and pulse Doppler demonstrate normal phasic intravascular flow. There is normal augmentation response to distal compression maneuver. Incidental note is made of a pulsatile venous waveform bilaterally may indicate right heart failure. Normal appearing bilateral inguinal lymph nodes noted as well. IMPRESSION: No evidence of deep venous thrombosis, bilateral Approved by: Darrell Bardales M.D. on 07/24/2023 at 14:37 ECG Data Attestation EKG: I personally reviewed and interpreted this ECG as follows: Interpretation: Sinus rhythm rate of 65 [place] 142 QRS of 100 QTC of 468, no acute ST changes patient does have PVCs. [facility] Narrative Medical decision making narrative: Cornelio 07/24/2023: 53 year old male with chronic right extremity swelling and developed left lower extremity swelling open, erythema drainage. Patient has not seen a doctor in many years. Does have a history of IV drug use remotely does still use regularly. On exam patient is really heart rate lungs are clear patient has significant bilateral lower extremity with chronic venous stasis changes but also overlying erythema particularly in the left with a large open wound the anterior orta. It appears to be weeping does not appear to have purulent drainage. Patient does have palpable pulses. Cap refills less than 2 seconds in both feet. He is quite painful in the left leg. Patient notes that he has not seen a physician in many years. He does have a history drug use no longer injects for several years but still uses fentanyl. He does use tobacco, denies any regular alcohol use. Has had prior Antonio fundoplication and right knee replacement but other surgeries or interventions. Patient has not allergy to sulfa and carbidopa levodopa which he states he was given for restless leg. Patient has quite difficult IV access he states they had significant difficulties in the past low attempt with ultrasound but PICC line service was also contacted. Patient appears stable at this time to hold off on central line access at this time. Chest xray is negative. EKG shows sinus rhythm occasional PVCs. labs 2.6 hemoglobin 8.2, microcytic, this appears similar white count is atypical. Platelets are 151 today. INR is 1.2 sodium is 136 potassium 4.2 chloride 108 CO2 is 26 with a BUN 19, normal renal function with creatinine 0.84, lactate 2.8 calcium is low at 7.8 LFTs are negative, troponin is less than 0.012, BNP is 165. Procalcitonin 0.36. Spoke with Dr. Brand, would like dvt US ordered. DVT US prelim no dvt, does have several larger lymph nodes. Re-contacted Dr. Brand hospitalist, who accepts. Related preliminary ultrasound findings. Discharge Plan Departure Patient Disposition: Admitted As Inpatient Clinical Impression: Cellulitis of leg, Leg wound, left Admit Date/Time: 07/24/23 15:31 Admit Provider: Edmund Brand
--- NOTE | 2023-07-24 06:50 | DI.RAD.S_ITS ---
PROCEDURE: XR CHEST 1V INDICATIONS: suspected sepsis TECHNIQUE: One view of the chest was acquired. COMPARISON: Located Within [facility], CR, XR CHEST 2V, 06/02/2021, 20:51. FINDINGS: Surgical changes and devices: None. Lungs and pleura: Lungs are clear. No pleural effusions or pneumothorax. Mediastinum: Mediastinal contours appear normal. Heart size is normal. Bones and chest wall: No suspicious bony lesions. Overlying soft tissues appear unremarkable. IMPRESSION: No acute pulmonary process. Dictated by: Mariana Huang M.D. on 07/24/2023 at 8:09 Approved by: Mariana Huang M.D. on 07/24/2023 at 8:09
[2023-07-24] MEDS: OXYCODONE/ACETAMINOPHEN 5/325 TABLET 2 TAB PO (07:42)
--- NOTE | 2023-07-24 08:04 | PC.NURSE ---
at request of Dr. Grimes PICC team with Dynamic access called at [phone]
--- NOTE | 2023-07-24 08:04 | PC.NURSE ---
Patient has known history of IV drug use. Overnight RN attempted twice in right AC. This RN attempted twice in left AC and once in right forearm. Lab is also attempting blood draws without success. 3rd RN attempting IV placement at this time. Provider aware of inability to access patient. External PICC line team called in and asked to place PICC line. PICC line company informed ORTHOTIC AIDE that they will alert their RN and the RN will call with time they can arrive.
--- NOTE | 2023-07-24 10:00 | PC.NURSE ---
Still no access available to complete orders. Provider aware vitals remain stable.
[2023-07-24 10:03] LABS: Appearance Urine UA CLEAR; Bilirubin Urine UA NEGATIVE (NEGATIVE); Color Urine UA YELLOW; Glucose Urine UA NEGATIVE (Negative); Ketones Urine UA NEGATIVE (NEGATIVE); Leukocyte Esterase Urine UA 1+ (NEGATIVE); Nitrite Urine UA POSITIVE (Negative); Occult Blood Urine UA NEGATIVE (Negative); Protein Urine UA TRACE (Negative); Specific Gravity Urine UA 1.015 (1.000-1.035); Urobilinogen Urine UA 0.2 E.U./dL (0.2); pH Urine UA 8.5 (4.5-8.0)
[2023-07-24 10:16] LABS: Bacteria Urine Many (>30); Culture Indicated Urine Specimen Cultured; RBC Urine 0-1/HPF (0-5/HPF); Squamous Epithelial Cell Urine 0-1 /HPF (0-5/HPF); Urine Volume 10mL (spun); WBC Urine 5-10/HPF (0-5/HPF)
[2023-07-24 11:53] LABS: Add Manual Diff / Slide Review NO; Basophils Absolute Auto 0 /uL (0-100); Basophils Percent Auto 0.8 % (0-2); Eosinophils Absolute Auto 0 /uL (0-450); Eosinophils Percent Auto 0.9 % (2-4); Hematocrit 25.8 % (41-53); Hemoglobin 8.2 g/dL (13.5-17.5); Lymphocytes Absolute Auto 500 /uL (1100-4500); Lymphocytes Percent Auto 21.3 % (25-40); Mean Corpuscular HGB Conc 31.8 % (30-36); Mean Corpuscular Hemoglobin 24.1 PG (26-34); Mean Corpuscular Volume 75.7 fL (80-100); Monocytes Absolute Auto 200 /uL (0-900); Monocytes Percent Auto 8.9 % (3-14); Neutrophils Absolute Auto 1800 /uL (1500-7000); Neutrophils Percent Auto 68.1 % (50-75); Platelet Count 151 X10^3/uL (150-400); Red Cell Distribution Width 18.3 % (11.6-14.8); White Blood Cell Count 2.6 X10^3/uL (4.5-11.0)
--- NOTE | 2023-07-24 11:56 | DI.RAD.S_ITS ---
PROCEDURE: XR CHEST FOR PICC 1V INDICATIONS: picc placement COMPARISON: [facility], , XR CHEST 1V, 07/24/2023, 7:37. FINDINGS: PICC was placed by the intravenous therapy team from the right side. Fluoroscopic spot film demonstrates the tip of PICC projecting to the area of mid SVC. IMPRESSION: Tip of PICC projects to the area of mid SVC. Approved by: Darrell Bardales M.D. on 07/24/2023 at 12:13
[2023-07-24 12:02] LABS: INR 1.2 (0.9-1.3); Prothrombin Time 14.3 SECONDS (9.4-12.5)
[2023-07-24 12:04] LABS: Lactate (Lactic Acid) 0.8 mmol/L (0.7-2.1)
[2023-07-24 12:05] LABS: PTT Partial Thromboplastin Tim 44 SECONDS (25.1-36.5)
--- NOTE | 2023-07-24 12:06 | PC.NURSE ---
PICC line nurse arrived and is in patient room attempting to place PICC in patient.
[2023-07-24 12:19] LABS: Creatine Kinase 82 U/L (55-170)
[2023-07-24 12:21] LABS: Alanine Aminotransferase 24 IU/L (<50); Albumin 2.6 g/dL (3.5-5.0); Albumin Globulin Ratio 0.7 (1.0-2.8); Alkaline Phosphatase 85 U/L (38-126); Aspartate Aminotransferase 50 IU/L (17-59); BUN Creatinine Ratio 22.6 (6-22); Bilirubin Total 0.5 mg/dL (0.2-1.3); Blood Urea Nitrogen 19 mg/dL (9-20); Calcium 7.8 mg/dL (8.4-10.2); Carbon Dioxide 26 mmol/L (22-32); Chloride 108 mmol/L (98-107); Estimated Glomerular Filt Rate > 60 mL/min (>60); Globulin 3.8 g/dL (1.7-4.1); Glucose 93 mg/dL (70-100); HEMOLYSIS 16 (0-50); Lipase 111 U/L (23-300); Potassium 4.2 mmol/L (3.4-5.1); Sodium 136 mmol/L (137-145); Total Protein 6.4 g/dL (6.3-8.2)
[2023-07-24 12:32] LABS: NT-proBNP (BNP-Adult 18+) 165 pg/mL (<125); Troponin I < 0.012 ng/mL (0.01-0.034)
[2023-07-24 12:38] LABS: Procalcitonin 0.36 ng/mL (<0.5)
[2023-07-24] MEDS: SODIUM CHLORIDE 0.9% 1,000 ML 1000 ML IV (13:17)
[2023-07-24] MEDS: cefTRIAXone 2,000 MG in SODIUM CHLORIDE 0.9% 100 ML 200 MG IV (13:18)
[2023-07-24] MEDS: VANCOMYCIN 1,250 MG/250 ML PIGGYBACK 250 MG IV (14:02)
--- NOTE | 2023-07-24 14:07 | DI.US.S_ITS ---
PROCEDURE: US PERIPH VENOUS LOW EXTREM BI INDICATIONS: leg swelling b/l TECHNIQUE: Real-time imaging, as well as color and pulse Doppler interrogation, were performed of the deep veins of both legs from the inguinal ligament to the popliteal fossa, with documentation of the visualized calf veins. COMPARISON: [facility], CR, XR CHEST FOR PICC 1V, 07/24/2023, 12:21. FINDINGS: Right: The common femoral, femoral, popliteal, and the visualized calf veins are normally compressible, and free of intraluminal thrombus. Color and pulse Doppler demonstrate normal phasic intravascular flow. There is normal augmentation response to distal compression maneuver. Left: The common femoral, femoral, popliteal, and the visualized calf veins are normally compressible, and free of intraluminal thrombus. Color and pulse Doppler demonstrate normal phasic intravascular flow. There is normal augmentation response to distal compression maneuver. Incidental note is made of a pulsatile venous waveform bilaterally may indicate right heart failure. Normal appearing bilateral inguinal lymph nodes noted as well. IMPRESSION: No evidence of deep venous thrombosis, bilateral Approved by: Darrell Bardales M.D. on 07/24/2023 at 14:37
[2023-07-24] MEDS: MORPHINE 4 MG/ML INJ IV (15:40)
[2023-07-24] MEDS: ACETAMINOPHEN 325 MG TABLET 975 MG PO (16:30)
[2023-07-24] MEDS: OXYCODONE IR 5 MG TABLET PO (16:30)
[2023-07-24] MEDS: cloNIDine 0.1 MG TABLET PO ×2 (18:08→20:44)
[2023-07-24] MEDS: METHADONE 10 MG TABLET 40 MG PO (18:08)
--- NOTE | 2023-07-24 18:28 | PM.HP.1 ---
History of Present Illness History of Present Illness Date Patient Seen: 07/24/23 Chief complaint: left leg infection Narrative: Hector Martínez is a 53yo M with PMH of active fentanyl use, GERD who presents with RLE cellulitis. He says he smokes 0.5g of fentanyl daily and is actively withdrawing. He has an appointment on Wednesday at the methadone clinic and would like to start it now to prevent withdrawals. Says both of his legs have been red and weeping. They are quite painful and the right leg is worse. He denies CP, SOB, NV, abd pain or diarrhea. [facility] Medical History GERD (gastroesophageal reflux disease) Anemia, iron deficiency Surgical History No significant past surgical history Social History household members: none Smoking Status: Never smoker Meds Home Medications and Allergies Home Medications Medication Instructions Recorded Confirmed Type No Known Home Medications 07/24/23 07/24/23 History Allergies Allergy/AdvReac Type Severity Reaction Status Date / Time Sulfa (Sulfonamide Allergy Mild RASH Verified 12/17/21 15:10 Antibiotics) [SULFA (SULFONAMIDE ANTIBIOTICS)] carbidopa [From SINEMET] AdvReac Mild JERKY LEG Verified 12/17/21 15:10 MOVEMENTS levodopa [From SINEMET] AdvReac Mild JERKY LEG Verified 12/17/21 15:10 MOVEMENTS Review of Systems Review of Systems Narrative: All other systems reviewed with the patient and are negative unless otherwise stated. Exam Vital Signs (past 8 hours): - 07/24/23 10:30 07/24/23 10:30 07/24/23 10:45 Temperature Pulse Rate 69 71 Pulse Rate [Left Dorsalis Pedis] Respiratory Rate 17 18 Blood Pressure 118/70 Pulse Oximetry 100 94 Oxygen Flow Rate 07/24/23 10:45 07/24/23 11:00 07/24/23 11:00 Temperature Pulse Rate 81 Pulse Rate [Left Dorsalis Pedis] Respiratory Rate 27 H Blood Pressure 123/71 131/75 Pulse Oximetry 100 Oxygen Flow Rate 07/24/23 11:16 07/24/23 11:20 07/24/23 11:20 Temperature Pulse Rate 67 64 Pulse Rate [Left Dorsalis Pedis] Respiratory Rate 22 Blood Pressure 99/55 L Pulse Oximetry 99 99 Oxygen Flow Rate 07/24/23 11:22 07/24/23 11:22 07/24/23 11:23 Temperature 98.0 F Pulse Rate 62 Pulse Rate [Left Dorsalis Pedis] Respiratory Rate 13 Blood Pressure 119/59 L Pulse Oximetry 99 Oxygen Flow Rate 07/24/23 11:25 07/24/23 11:30 07/24/23 11:30 Temperature Pulse Rate 65 Pulse Rate [Left Dorsalis Pedis] 64 Respiratory Rate 23 Blood Pressure 112/67 Pulse Oximetry 99 Oxygen Flow Rate 07/24/23 11:54 07/24/23 11:54 07/24/23 12:00 Temperature Pulse Rate 63 63 Pulse Rate [Left Dorsalis Pedis] Respiratory Rate 18 17 Blood Pressure 120/68 Pulse Oximetry 100 100 Oxygen Flow Rate 07/24/23 12:00 07/24/23 12:15 07/24/23 12:15 Temperature Pulse Rate 62 Pulse Rate [Left Dorsalis Pedis] Respiratory Rate 11 L Blood Pressure 122/67 116/66 Pulse Oximetry 100 Oxygen Flow Rate 07/24/23 12:30 07/24/23 12:30 07/24/23 12:45 Temperature Pulse Rate 61 59 L Pulse Rate [Left Dorsalis Pedis] Respiratory Rate 18 24 Blood Pressure 122/69 Pulse Oximetry 100 100 Oxygen Flow Rate 07/24/23 12:45 07/24/23 16:16 07/24/23 18:08 Temperature 97.8 F Pulse Rate 68 62 Pulse Rate [Left Dorsalis Pedis] Respiratory Rate 18 Blood Pressure 119/69 131/62 131/62 Pulse Oximetry 97 Oxygen Flow Rate 0 Oxygen Delivery Method Room Air Oxygen Flow Rate 0 Narrative Exam Narrative: GEN: no acute distress, anxious HEENT: moist mucous membranes, PERRL NECK: trachea midline, no JVD CV: regular rate and rhythm, no murmurs PULM: clear bilaterally ABD: soft, nontender, nondistended, no organomegaly EXT: warm and well perfused, bialteral erythema, warmth and swelling of shins wrapping around to calves, with superficial wound on L orta NEURO: awake, alert, oriented, no focal deficits Objective Labs 07/25/23 06:15 07/25/23 06:15 Labs: Laboratory Results - last 24 hr 07/24/23 07/24/23 09:53 11:35 WBC 2.6 L RBC 3.40 L Hgb 8.2 L Hct 25.8 L MCV 75.7 L MCH 24.1 L MCHC 31.8 RDW 18.3 H Plt Count 151 Neut % (Auto) 68.1 Lymph % (Auto) 21.3 L [place] % (Auto) 8.9 Eos % (Auto) 0.9 L Baso % (Auto) 0.8 Neut # (Auto) 1800 Lymph # (Auto) 500 L [place] # (Auto) 200 Eos # (Auto) 0 Baso # (Auto) 0 PT 14.3 H INR 1.2 APTT 44 H Sodium 136 L Potassium 4.2 Chloride 108 H Carbon Dioxide 26 BUN 19 Creatinine 0.84 Estimated GFR > 60 BUN/Creatinine Ratio 22.6 H Glucose 93 Lactate 0.8 Calcium 7.8 L Magnesium 2.0 Total Bilirubin 0.5 AST 50 ALT 24 Alkaline Phosphatase 85 Total Creatine Kinase 82 Troponin I < 0.012 NT-Pro-B Natriuret Pep 165 H Total Protein 6.4 Albumin 2.6 L Globulin 3.8 Albumin/Globulin Ratio 0.7 L Lipase 111 Procalcitonin 0.36 Urine Color Yellow Urine Appearance Clear Urine pH 8.5 H Ur Specific [place] 1.015 Urine Protein Trace H Urine Glucose (UA) Negative Urine Ketones Negative Urine Occult Blood Negative Urine Nitrate Positive H Urine Bilirubin Negative Urine Urobilinogen 0.2 Ur Leukocyte Esterase 1+ H Urine RBC 0-1/hpf Urine WBC 5-10/hpf H Ur Squamous Epith Cells 0-1 /hpf Urine Bacteria Many (>30) H Ur Culture Indicated? Specimen cultured Vol Urine Centrifuged 10ml (spun) Assessment & Plan Assessment & Plan narrative: # RLE cellulitis, with likely bilateral venous stasis # active fentanyl use and opioid withdrawal -rocephin and vanco -check MRSA swab -patient interested in methadone and has appt with methadone clinic on 07/25 -start scheduled oxycodone 10mg q4h, clonidine 0.1mg BID for opioid withdrawal -start methadone 40mg daily -tele and monitor QTc Code status is full code. DVT prophylaxis with Lovenox. Proxy is Nadine. I have reviewed home meds and used all available resources to reconcile the home meds. Case discussed with ED physician/APC and patient will be admitted to the hospitalist service for further workup and management. This patient will be admitted as observation and will require less than 2 midnights of hospital time to treat cellulitis.
[2023-07-24 19:27] LABS: MRSA (Nasal) PCR DETECTED (Not Detect)
[2023-07-24] MEDS: OXYCODONE IR 5 MG TABLET 10 MG PO (20:45)
[2023-07-25] VITALS: BP 115/80; PULSE 84; RESP 17; TEMP 36.4; O2SAT 99
[2023-07-25] MEDS: VANCOMYCIN 1,500 MG/300 ML PIGGYBACK 200 MG IV ×2 (02:30→14:45)
[2023-07-25 03:49] LABS: Acinetobacter calcoa-baumannii Not Detected (Not Detect); Bacteroides fragilis Not Detected (Not Detect); Candida albicans Not Detected (Not Detect); Candida auris Not Detected (Not Detect); Candida glabrata Not Detected (Not Detect); Candida krusei Not Detected (Not Detect); Candida parapsilosis Not Detected (Not Detect); Candida tropicalis Not Detected (Not Detect); Cryptococcus neoformans/gatti Not Detected (Not Detect); Enterobacter cloacae complex Not Detected (Not Detect); Enterobacterales Not Detected (Not Detect); Enterococcus faecalis Not Detected (Not Detect); Enterococcus faecium Not Detected (Not Detect); Haemophilus influenzae Not Detected (Not Detect); Klebsiella aerogenes Not Detected (Not Detect); Listeria monocytogenes Not Detected (Not Detect); Neisseria meningitidis Not Detected (Not Detect); Proteus species Not Detected (Not Detect); Pseudomonas aeruginosa Not Detected (Not Detect); Salmonella species Not Detected (Not Detect); Serratia marcescens Not Detected (Not Detect); Staphylococcus epidermidis Not Detected (Not Detect); Staphylococcus lugdunensis Not Detected (Not Detect); Staphylococcus species Not Detected (Not Detect); Stenotrophomonas maltophilia Not Detected (Not Detect); Streptococcus agalactiae (Gr B Not Detected (Not Detect); Streptococcus pneumonia Not Detected (Not Detect); Streptococcus pyogenes (Gr A) Not Detected (Not Detect); Streptococcus species Not Detected (Not Detect)
[2023-07-25] MEDS: OXYCODONE IR 5 MG TABLET 10 MG PO ×3 (05:00→16:42)
[2023-07-25 06:09] VITALS: BP 116/60; PULSE 61; RESP 16; TEMP 37; O2SAT 100
[2023-07-25 06:35] LABS: Add Manual Diff / Slide Review NO; Basophils Absolute Auto 0 /uL (0-100); Eosinophils Absolute Auto 0 /uL (0-450); Eosinophils Percent Auto 1.8 % (2-4); Hematocrit 24.4 % (41-53); Hemoglobin 7.9 g/dL (13.5-17.5); Lymphocytes Absolute Auto 600 /uL (1100-4500); Lymphocytes Percent Auto 24.7 % (25-40); Mean Corpuscular HGB Conc 32.5 % (30-36); Mean Corpuscular Hemoglobin 24.5 PG (26-34); Mean Corpuscular Volume 75.3 fL (80-100); Monocytes Absolute Auto 200 /uL (0-900); Monocytes Percent Auto 7.3 % (3-14); Neutrophils Absolute Auto 1700 /uL (1500-7000); Neutrophils Percent Auto 65.2 % (50-75); Platelet Count 143 X10^3/uL (150-400); Red Blood Cell Count 3.24 X10^6/uL (4.5-5.9); Red Cell Distribution Width 18.8 % (11.6-14.8); White Blood Cell Count 2.6 X10^3/uL (4.5-11.0)
[2023-07-25 06:42] LABS: BUN Creatinine Ratio 18.9 (6-22); Blood Urea Nitrogen 17 mg/dL (9-20); Calcium 7.5 mg/dL (8.4-10.2); Carbon Dioxide 25 mmol/L (22-32); Chloride 109 mmol/L (98-107); Estimated Glomerular Filt Rate > 60 mL/min (>60); Glucose 80 mg/dL (70-100); HEMOLYSIS < 15 (0-50); Potassium 3.7 mmol/L (3.4-5.1); Sodium 135 mmol/L (137-145)
[2023-07-25 06:59] LABS: Procalcitonin 0.34 ng/mL (<0.5)
[2023-07-25] MEDS: cloNIDine 0.1 MG TABLET PO (07:42)
[2023-07-25] MEDS: METHADONE 10 MG TABLET 40 MG PO (07:42)
[2023-07-25] MEDS: cefTRIAXone 2,000 MG in SODIUM CHLORIDE 0.9% 100 ML 200 MG IV (08:50)
[2023-07-25 10:00] VITALS: BP 125/76; PULSE 60; RESP 18; TEMP 36.4; O2SAT 100
--- NOTE | 2023-07-25 11:17 | P.PN_ITS ---
Subjective Subjective Date Patient Seen: 07/25/23 Time Patient Seen: 07:38 Interval history: The patient was dressed and walking out upon my arrival at his room. He asked for his methadone to be given early and decided to stay. He notes ongoing redness, pain and swelling in both legs, worse on the left. Exam Vital Signs (past 8 hours): - 07/25/23 06:09 Temperature 98.6 F Pulse Rate 61 Respiratory Rate 16 Blood Pressure 116/60 Pulse Oximetry 100 Oxygen Flow Rate 0 Oxygen Delivery Method Room Air Oxygen Flow Rate 0 Narrative Exam Narrative: GENERAL: This is a well-nourished, well-developed patient, in no apparent distress. EYES: Pupils equal round and reactive. Extraocular motions intact. No scleral icterus. No injection or drainage. ENT: Mucous membranes pink and moist. NECK: Trachea midline. No JVD, bruits or lymphadenopathy. Supple, nontender, no meningeal signs. CARDIOVASCULAR: Regular rate and rhythm without murmurs, gallops, or rubs. RESPIRATORY: Clear to auscultation. GASTROINTESTINAL: Abdomen soft, non-tender, nondistended. EXTREMITIES: 1+ edema. NEUROLOGIC: Alert, oriented, speech fluent, full upper and lower motor strength, no focal deficits evident. DERMATOLOGIC: Diffuse erythema in both legs from the feet to mid calf, with macerated and superficially ulcerated anterior distal shins. Objective Labs 07/25/23 06:15 07/25/23 06:15 Labs: Laboratory Results - last 24 hr 07/24/23 07/24/23 07/25/23 11:35 18:20 02:23 WBC 2.6 L RBC 3.40 L Hgb 8.2 L Hct 25.8 L MCV 75.7 L MCH 24.1 L MCHC 31.8 RDW 18.3 H Plt Count 151 Neut % (Auto) 68.1 Lymph % (Auto) 21.3 L [place] % (Auto) 8.9 Eos % (Auto) 0.9 L Baso % (Auto) 0.8 Neut # (Auto) 1800 Lymph # (Auto) 500 L [place] # (Auto) 200 Eos # (Auto) 0 Baso # (Auto) 0 PT 14.3 H INR 1.2 APTT 44 H Sodium 136 L Potassium 4.2 Chloride 108 H Carbon Dioxide 26 BUN 19 Creatinine 0.84 Estimated GFR > 60 BUN/Creatinine Ratio 22.6 H Glucose 93 Lactate 0.8 Calcium 7.8 L Magnesium 2.0 Total Bilirubin 0.5 AST 50 ALT 24 Alkaline Phosphatase 85 Total Creatine Kinase 82 Troponin I < 0.012 NT-Pro-B Natriuret Pep 165 H Total Protein 6.4 Albumin 2.6 L Globulin 3.8 Albumin/Globulin Ratio 0.7 L Lipase 111 Procalcitonin 0.36 Nasal Screen MRSA (PCR) Detected H A.calcoaceticus-baumannii cmplx PCR Not detected Bacteroides fragilis Not detected Nery albicans (PCR) Not detected Nery auris (PCR) Not detected C. glabrata (PCR) Not detected C. krusei (PCR) Not detected C. parapsilosis (PCR) Not detected C. tropicalis (PCR) Not detected C. neoform/gattii (PCR) Not detected Enterobacterales (PCR) Not detected E. cloacae complex PCR Not detected Enterococc faecalis PCR Not detected Enterococc faecium PCR Not detected E. coli (PCR) Not detected H. influenzae (PCR) Not detected Klebsiella aerogenes (PCR) Not detected Klebsiella oxytoca PCR Not detected Klebsiella pneumoniae Not detected List. monocytogenes PCR Not detected N. meningitidis (PCR) Not detected Proteus species (PCR) Not detected Salmonella spp. (PCR) Not detected Serratia marcescens PCR Not detected Staphylococcus sp PCR Not detected Staph aureus (PCR) Not detected mecA/C & MREJ Resist Gene Not applicable mecA/C-Methicil Resis Gene Not applicable mcr-1 Colistin Res Gene PCR Not applicable Staph epidermidis (PCR) Not detected Staph lugdunensis PCR Not detected S. maltophilia (PCR) Not detected Streptococcus sp PCR Not detected Group A Strep (PCR) Not detected Strep agalactiae (PCR) Not detected Strep pneumoniae (PCR) Not detected P. aeruginosa (PCR) Not detected Anibal/B-Vanco Res Genes Not applicable blaIMP Car res Gene PCR Not applicable KPC-Carbap Res Gene PCR Not applicable blaNDM Car Res Gene PCR Not applicable OXA-48 Carbapenem Resis Gene (PCR) Not applicable blaVIM Car Res Gene PCR Not applicable CTX-M Gene Resistance (PCR) Not applicable 07/25/23 06:15 WBC 2.6 L RBC 3.24 L Hgb 7.9 L Hct 24.4 L MCV 75.3 L MCH 24.5 L MCHC 32.5 RDW 18.8 H Plt Count 143 L Neut % (Auto) 65.2 Lymph % (Auto) 24.7 L [place] % (Auto) 7.3 Eos % (Auto) 1.8 L Baso % (Auto) 1.0 Neut # (Auto) 1700 Lymph # (Auto) 600 L [place] # (Auto) 200 Eos # (Auto) 0 Baso # (Auto) 0 PT INR APTT Sodium 135 L Potassium 3.7 Chloride 109 H Carbon Dioxide 25 BUN 17 Creatinine 0.90 Estimated GFR > 60 BUN/Creatinine Ratio 18.9 Glucose 80 Lactate Calcium 7.5 L Magnesium Total Bilirubin AST ALT Alkaline Phosphatase Total Creatine Kinase Troponin I NT-Pro-B Natriuret Pep Total Protein Albumin Globulin Albumin/Globulin Ratio Lipase Procalcitonin 0.34 Nasal Screen MRSA (PCR) A.calcoaceticus-baumannii cmplx PCR Bacteroides fragilis Nery albicans (PCR) Nery auris (PCR) C. glabrata (PCR) C. krusei (PCR) C. parapsilosis (PCR) C. tropicalis (PCR) C. neoform/gattii (PCR) Enterobacterales (PCR) E. cloacae complex PCR Enterococc faecalis PCR Enterococc faecium PCR E. coli (PCR) H. influenzae (PCR) Klebsiella aerogenes (PCR) Klebsiella oxytoca PCR Klebsiella pneumoniae List. monocytogenes PCR N. meningitidis (PCR) Proteus species (PCR) Salmonella spp. (PCR) Serratia marcescens PCR Staphylococcus sp PCR Staph aureus (PCR) mecA/C & MREJ Resist Gene mecA/C-Methicil Resis Gene mcr-1 Colistin Res Gene PCR Staph epidermidis (PCR) Staph lugdunensis PCR S. maltophilia (PCR) Streptococcus sp PCR Group A Strep (PCR) Strep agalactiae (PCR) Strep pneumoniae (PCR) P. aeruginosa (PCR) Anibal/B-Vanco Res Genes blaIMP Car res Gene PCR KPC-Carbap Res Gene PCR blaNDM Car Res Gene PCR OXA-48 Carbapenem Resis Gene (PCR) blaVIM Car Res Gene PCR CTX-M Gene Resistance (PCR) [facility] Medical History (Updated 07/24/23 @ 15:21 by Linda Grimes DO) GERD (gastroesophageal reflux disease) Anemia, iron deficiency Surgical History (Updated 12/17/21 @ 17:18 by Noah Hu MD) No significant past surgical history Social History household members: none Smoking Status: Never smoker Assessment & Plan Assessment & Plan narrative: 1. Bilateral lower extremity cellulitis 2. Active fentanyl use with opioid withdrawal. Continue methadone 40 mg daily started on this admission 3. 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 Positive nasal MRSA screen Plan: -continue rocephin and vanco -patient interested in methadone and has appt with methadone clinic on 07/25 -continue scheduled oxycodone 10mg q12h, clonidine 0.1mg BID for opioid withdrawal -continue methadone 40mg daily -tele and monitor QTc -check serum iron studies and ferritin, stool hemoccults Code status is full code. DVT prophylaxis with Lovenox. Proxy is Nadine. I have reviewed home meds and used all available resources to reconcile the home meds. This patient will be admitted as observation and will require less than 2 midnights of hospital time to treat cellulitis. Quality MIPS - Admit I confirm the patient?s Advance Care Plan is present, Code status is documented, Surrogate decision maker is in patient?s record [If Yes, STOP here]: Yes MIPS - Meds 'Current medications' to include all prescriptions, coem-[id number]-[id number] products, herbals, cannabis/cannabidiol products, and vitamin/mineral/dietary (nutritional) supplements. I have utilized all available resources to obtain, update, or review the patient?s current medications. [If Yes, STOP here]: Yes PROFEE Charge codes Subsequent inpatient/observation care: [id number]
[2023-07-25 13:35] VITALS: BP 122/75; PULSE 60; RESP 16; TEMP 36.6; O2SAT 100
--- NOTE | 2023-07-25 16:27 | CM.DANOTE ---
Brief DCP Assessment note Pt is a 53yo M here with cellulitis of his left calf/redness, pain, and swelling of both legs. PMH of fentanyl use/opioid use. Pt currently on 40mg Methadone. PCP none listed. Where is pt getting methadone from? Payer self pay. Denys notes indicate pt was given marlys packet. CHIP TESTER reviewed EMR. Per RN report/hospitalist report in morning multidisciplinary rounds, pt AMA risk/threatened to leave multiple times but decided to end up staying. Pt getting IV abx now. per chart review, 2021 ED SW notes indicate pt was living in his car and provided resources for establishing OP medical care. Per chart review, pt lives in [place] with spouse Nadine. CHIP TESTER unable to meet with pt at this time. Plan: anticipate home with spouse when stable. CM team will continue to follow closely for DCP/SW resources. MICHELE Souza Discharge Planning/Care Management CM Discharge Assessment Start: 07/25/23 16:25 Freq: Status: Active Protocol: Document 07/25/23 16:25 (Rec: 07/25/23 16:27 [id number]) Discharge Planning Assessment Assigned Dry Box Tender MICHELE Anthony DPOA/Assigned Designee Name Nadine, spouse Contact Information [phone] Advance Directives? No History Provided By Patient Household Members none Independent with ADL's Yes Is patient alert and oriented? Yes Referrals Initiated None needed Whiteboard Updated in Patient Room with No name and ext. # of Dry Box Tender Review Status In Process Next Review Type Continued Stay Review
--- NOTE | 2023-07-25 17:56 | PM.DS.1 ---
History of Present Illness History of Present Illness Chief complaint: left leg infection Narrative: Hector Martínez is a 53yo M with PMH of active fentanyl use, GERD who presents with RLE cellulitis. He says he smokes 0.5g of fentanyl daily and is actively withdrawing. He has an appointment on Wednesday at the methadone clinic and would like to start it now to prevent withdrawals. Says both of his legs have been red and weeping. They are quite painful and the right leg is worse. He denies CP, SOB, NV, abd pain or diarrhea. Discharge Providers Provider Date of admission: 07/24/23 15:31 Discharge Date: 07/25/23 Discharge provider: Edmund Brand DO Summary Hospital Course Discharge Diagnosis: # RLE cellulitis, with likely bilateral venous stasis # active fentanyl use and opioid withdrawal Hospital Course: Patient admitted for RLE cellulitis and given IV abx. Improved somewhat over 2 days then patient began withdrawing from fentanyl use. He was started on methadone and scheduled oxycodone plus clonidine to help his symptoms. He was discharged with oral antibiotics for 5 more days and has a f/up with the methadone clinic on 07/25. Exam Vital Signs (past 8 hours): - 07/25/23 10:00 07/25/23 13:35 Temperature 97.6 F 97.9 F Pulse Rate 60 60 Respiratory Rate 18 16 Blood Pressure 125/76 122/75 Pulse Oximetry 100 100 Oxygen Delivery Method Room Air Oxygen Flow Rate 0 Narrative Exam Narrative: GENERAL: This is a well-nourished, well-developed patient, in no apparent distress. EYES: Pupils equal round and reactive. Extraocular motions intact. No scleral icterus. No injection or drainage. ENT: Mucous membranes pink and moist. NECK: Trachea midline. No JVD, bruits or lymphadenopathy. Supple, nontender, no meningeal signs. CARDIOVASCULAR: Regular rate and rhythm without murmurs, gallops, or rubs. RESPIRATORY: Clear to auscultation. GASTROINTESTINAL: Abdomen soft, non-tender, nondistended. EXTREMITIES: 1+ edema. NEUROLOGIC: Alert, oriented, speech fluent, full upper and lower motor strength, no focal deficits evident. DERMATOLOGIC: Diffuse erythema in both legs from the feet to mid calf, with macerated and superficially ulcerated anterior distal shins. Objective Labs 07/25/23 06:15 07/25/23 06:15 Labs: Laboratory Results - last 24 hr 07/24/23 07/25/23 07/25/23 18:20 02:23 06:15 WBC 2.6 L RBC 3.24 L Hgb 7.9 L Hct 24.4 L MCV 75.3 L MCH 24.5 L MCHC 32.5 RDW 18.8 H Plt Count 143 L Neut % (Auto) 65.2 Lymph % (Auto) 24.7 L [place] % (Auto) 7.3 Eos % (Auto) 1.8 L Baso % (Auto) 1.0 Neut # (Auto) 1700 Lymph # (Auto) 600 L [place] # (Auto) 200 Eos # (Auto) 0 Baso # (Auto) 0 Sodium 135 L Potassium 3.7 Chloride 109 H Carbon Dioxide 25 BUN 17 Creatinine 0.90 Estimated GFR > 60 BUN/Creatinine Ratio 18.9 Glucose 80 Calcium 7.5 L Procalcitonin 0.34 Nasal Screen MRSA (PCR) Detected H A.calcoaceticus-baumannii cmplx PCR Not detected Bacteroides fragilis Not detected Nery albicans (PCR) Not detected Nery auris (PCR) Not detected C. glabrata (PCR) Not detected C. krusei (PCR) Not detected C. parapsilosis (PCR) Not detected C. tropicalis (PCR) Not detected C. neoform/gattii (PCR) Not detected Enterobacterales (PCR) Not detected E. cloacae complex PCR Not detected Enterococc faecalis PCR Not detected Enterococc faecium PCR Not detected E. coli (PCR) Not detected H. influenzae (PCR) Not detected Klebsiella aerogenes (PCR) Not detected Klebsiella oxytoca PCR Not detected Klebsiella pneumoniae Not detected List. monocytogenes PCR Not detected N. meningitidis (PCR) Not detected Proteus species (PCR) Not detected Salmonella spp. (PCR) Not detected Serratia marcescens PCR Not detected Staphylococcus sp PCR Not detected Staph aureus (PCR) Not detected mecA/C & MREJ Resist Gene Not applicable mecA/C-Methicil Resis Gene Not applicable mcr-1 Colistin Res Gene PCR Not applicable Staph epidermidis (PCR) Not detected Staph lugdunensis PCR Not detected S. maltophilia (PCR) Not detected Streptococcus sp PCR Not detected Group A Strep (PCR) Not detected Strep agalactiae (PCR) Not detected Strep pneumoniae (PCR) Not detected P. aeruginosa (PCR) Not detected Anibal/B-Vanco Res Genes Not applicable blaIMP Car res Gene PCR Not applicable KPC-Carbap Res Gene PCR Not applicable blaNDM Car Res Gene PCR Not applicable OXA-48 Carbapenem Resis Gene (PCR) Not applicable blaVIM Car Res Gene PCR Not applicable CTX-M Gene Resistance (PCR) Not applicable PFSH Medical History GERD (gastroesophageal reflux disease) Anemia, iron deficiency Surgical History No significant past surgical history Social History household members: none Smoking Status: Never smoker Discharge Plan Discharge Plan Patient Disposition: Home Discharge orders & Medications Prescriptions: New amoxicillin-pot clavulanate 875-125 mg tablet 1 tab PO BID 5 Days Qty: 10 0RF doxycycline hyclate 100 mg capsule 100 mg PO BID 5 Days Qty: 10 0RF Visit Report/Discharge Packet Stand Alone Forms: Patient Portal/API, Stroke Signs & Symptoms
[2023-07-25 18:00] VITALS: BP 124/75; PULSE 62; RESP 14; TEMP 36.4; O2SAT 100
--- NOTE | 2023-07-25 18:35 | PC.NURSE ---
Event Note Prior to discharge this patient decided to leave unit without removal of PICC line. Patient was approached by charge account identification clerk Renee and this RN. Patient stated not right now, I will be back and preceded to walk down the stairs. These RNs followed suit in an attempt to bring patient back for safe removal of PICC line. tapeman Renee called security and [employer] for assistance due to patient history of IV drug use. This RN and charge account identification clerk followed patient towards until contact was made with [employer]. Patient information was exchanged with [employer] and they continued to follow patient in an attempt to remove PICC line or bring patient back for removal. Hospitalist Sunday updated. [employer] to continue to update.
--- NOTE | 2023-07-29 07:58 | PC.NURSE ---
Late Entry: Ceftriaxone infusion initiated 07/24 at 0850 complete at 0921.
== END 2023-07-25 18:00 | disposition left against medical advice (07) ==
LOC: ED 07:05 → AC 15:50
PROVIDERS: Emergency Medicine; Admitting Provider Student in an Organized Health Care Education/Training Program; Emergency Provider Emergency Medicine; Family Provider Internal Medicine; Referring Provider Emergency Medicine; Visit Provider Student in an Organized Health Care Education/Training Program
DX: L03.116 Cellulitis of left lower limb (principal); L03.115 Cellulitis of right lower limb; A49.02 Methicillin resistant Staphylococcus aureus infection, unspecified site; F11.13 Opioid abuse with withdrawal; D64.9 Anemia, unspecified
CPT/HCPCS: 71045; 80048; 80053; 81001; 81003; 82550; 83605; 83690; 83735; 83880; 84145; 84484; 85025; 85610; 85730; 87040; 87070; 87077; 87086; 87147; 87154; 87186; 87205; 87797; 93005; 93010; 93970; 96365; 96366; 96367; 96375; 99284; G0378; J0696; J2270

== ENCOUNTER 2023-09-26 13:19 | Emergency (ER) | payer SELFPAY ==
[2023-07-24 16:31] VITALS: BMI 28.0
[2023-09-26] VITALS (7 sets, daily range): BP systolic 124–132; BP diastolic 60–87; PULSE 67–79; RESP 14–16; TEMP 36.7; O2SAT 96–100; BMI 26.3
--- NOTE | 2023-09-26 13:56 | DI.RAD.S_ITS ---
PROCEDURE: XR CHEST 1V INDICATIONS: suspected sepsis TECHNIQUE: One view of the chest was acquired. COMPARISON: [facility], CR, XR CHEST 1V, 07/24/2023, 7:37. FINDINGS: Surgical changes and devices: None. Lungs and pleura: Lungs are clear. No pleural effusions or pneumothorax. Mediastinum: Mediastinal contours appear normal. Heart size is normal. Bones and chest wall: No suspicious bony lesions. Overlying soft tissues appear unremarkable. IMPRESSION: No acute cardiopulmonary abnormality is seen. Approved by: Gulshan Saini M.D. on 09/26/2023 at 16:00
[2023-09-26 14:10] LABS: Add Manual Diff / Slide Review NO; Basophils Absolute Auto 0 /uL (0-100); Basophils Percent Auto 0.2 % (0-2); Eosinophils Absolute Auto 0 /uL (0-450); Eosinophils Percent Auto 0.2 % (2-4); Hematocrit 23.7 % (41-53); Hemoglobin 7.7 g/dL (13.5-17.5); Lymphocytes Absolute Auto 400 /uL (1100-4500); Lymphocytes Percent Auto 6.3 % (25-40); Mean Corpuscular HGB Conc 32.3 % (30-36); Mean Corpuscular Hemoglobin 22.4 PG (26-34); Mean Corpuscular Volume 69.5 fL (80-100); Monocytes Absolute Auto 400 /uL (0-900); Monocytes Percent Auto 5.1 % (3-14); Neutrophils Absolute Auto 6300 /uL (1500-7000); Neutrophils Percent Auto 88.2 % (50-75); Platelet Count 182 X10^3/uL (150-400); Red Blood Cell Count 3.41 X10^6/uL (4.5-5.9); Red Cell Distribution Width 18.2 % (11.6-14.8); White Blood Cell Count 7.1 X10^3/uL (4.5-11.0)
[2023-09-26 14:11] LABS: INR 1.6 (0.9-1.3); Prothrombin Time 18.2 SECONDS (9.4-12.5)
[2023-09-26 14:13] LABS: PTT Partial Thromboplastin Tim 47 SECONDS (25.1-36.5)
[2023-09-26 14:27] LABS: Lactate (Lactic Acid) 1.8 mmol/L (0.7-2.1)
[2023-09-26 14:28] LABS: Alanine Aminotransferase 83 IU/L (<50); Albumin 2.8 g/dL (3.5-5.0); Albumin Globulin Ratio 0.7 (1.0-2.8); Alkaline Phosphatase 149 U/L (38-126); Aspartate Aminotransferase 136 IU/L (17-59); Blood Urea Nitrogen 23 mg/dL (9-20); Calcium 7.9 mg/dL (8.4-10.2); Carbon Dioxide 27 mmol/L (22-32); Chloride 104 mmol/L (98-107); Estimated Glomerular Filt Rate > 60 mL/min (>60); Globulin 3.9 g/dL (1.7-4.1); Glucose 121 mg/dL (70-100); HEMOLYSIS < 15 (0-50); Lipase 100 U/L (23-300); Potassium 3.9 mmol/L (3.4-5.1); Sodium 133 mmol/L (137-145); Total Protein 6.7 g/dL (6.3-8.2)
[2023-09-26 14:36] LABS: Anisocytosis 2+
[2023-09-26 14:37] LABS: Microcytosis 1+; Ovalocytes 1+
[2023-09-26 14:38] LABS: Procalcitonin 4.46 ng/mL (<0.5); Schistocytes 1+; Target Cells 1+; Tear Drop Cells 1+
--- NOTE | 2023-09-26 14:40 | EKG_ITS ---
[facility] [address] [address] Test Date: 2023-09-26 Pat Name: Hector Resaca Department: [facility] Room: Gender: Male Children Counselor: CARROLL : 1970 Requested By: Order Number: [id number] Reading MD: Shashank Jaimes MD Measurements Intervals [place] Rate: 63 P: 25 NH: 140 QRS: -21 QRSD: 102 T: 2 QT: 446 QTc: 456 Interpretive Statements Normal sinus rhythm Cannot rule out Anterior infarct , age undetermined Electronically Signed On 09-26-2023 15:34:44 PDT by Shashank Jaimes MD
--- NOTE | 2023-09-26 14:51 | ED.EXTPRO ---
HPI - Extremity Problem General Chief complaint: Extremity Problem,Nontraumatic Stated complaint: Bilateral Leg Swelling Time Seen by Provider: 09/26/23 14:46 Source: EMS, old records reviewed and other Mode of arrival: Wheelchair Limitations: no limitations History of Present Illness HPI Narrative: Patient is a 53-year-old male. Is homeless. Does smoke fentanyl. Is here for evaluation of a prolonged episode of bilateral lower extremity swelling and redness and increasing pain. He states that he was not having fevers but does have chills quite often. No trauma. No abdominal pain. No chest pain no shortness of breath. He does not have a primary doctor. He stated that today the weakness and pain got so bad in his lower extremities that he contacted EMS to bring him in. Related Data Previous Rx's Medication Instructions Recorded cephalexin 500 mg capsule 500 mg PO QID 5 days #20 caps 09/26/23 furosemide 20 mg tablet (Lasix) 20 mg PO DAILY #30 tabs 09/26/23 Allergies Allergy/AdvReac Type Severity Reaction Status Date / Time Sulfa (Sulfonamide Allergy Mild RASH Verified 12/17/21 15:10 Antibiotics) [SULFA (SULFONAMIDE ANTIBIOTICS)] carbidopa [From SINEMET] AdvReac Mild JERKY LEG Verified 12/17/21 15:10 MOVEMENTS levodopa [From SINEMET] AdvReac Mild JERKY LEG Verified 12/17/21 15:10 MOVEMENTS Review of Systems Review of Systems ROS Unobtainable: All systems reviewed & are unremarkable except as noted in HPI and below Patient History Medical History GERD (gastroesophageal reflux disease) Anemia, iron deficiency Surgical History No significant past surgical history Social History household members: none Smoking Status: Never smoker Smoking Status: Never smoker alcohol intake frequency: holidays/special occasions only Substance Use Type: heroin, IV drugs and methamphetamine Exam Initial Vital Signs Initial Vital Signs: Vital Signs Temperature 98.0 F 09/26/23 13:20 Pulse Rate 77 09/26/23 13:20 Respiratory Rate 16 09/26/23 13:20 Blood Pressure 124/87 09/26/23 13:20 Pulse Oximetry 99 09/26/23 13:20 Oxygen Delivery Method Room Air 09/26/23 13:20 Const General: disheveled and No ill appearing HENMT Head: normal to inspection and normocephalic Resp Effort & Inspection: normal respiratory effort Auscultation: clear to auscultation bilaterally Cardio Rate: regular rate Rhythm: regular rhythm GI Inspection: normal to inspection Skin Other: Bilateral lower extremity swelling and redness. Has skin ulcerations in various stages of healing. Neuro General: patient alert, patient awake and moves all extremities Extrem General: edema Course Orders Ordered: ED Orders 09/26/23 13:25 Complete Blood Count AUTO DIFF Stat Comprehensive Metabolic Panel Stat Lactate (Lactic Acid) Stat Lipase Stat PTT Partial Thromboplastin Chaz Stat Procalcitonin Stat Prothrombin Time INR Stat 09/26/23 13:54 Consult to [facility] [place] Quality Technician Stat 09/26/23 13:56 XR chest 1V Stat EKG-12 Lead Stat RT Consult Eval and Treat NOW 09/26/23 14:33 Urine Culture Stat Urine Microscopic Stat 09/26/23 15:00 Blood Culture Stat Discontinued Medications Cephalexin HCl (Cephalexin 250 Mg Capsule) 500 mg PO NOW ONE Stop: 09/26/23 15:39 Last Admin: 09/26/23 15:53 Dose: 500 mg Documented By: SPF Furosemide (Furosemide 40 Mg Tablet) 20 mg PO NOW ONE Stop: 09/26/23 15:46 Last Admin: 09/26/23 15:54 Dose: 20 mg Documented By: SPF Ondansetron HCl (Ondansetron 4 Mg/2 Ml Inj) 4 mg IV NOW PRN PRN Reason: Nausea And Vomiting Ondansetron HCl (Ondansetron 4 Mg Odt) 4 mg SL NOW PRN PRN Reason: Nausea And Vomiting Vital Signs Vital signs: Vital Signs - 8 hr 09/26/23 13:20 09/26/23 14:38 09/26/23 14:39 Temperature 98.0 F Pulse Rate 77 73 68 Respiratory Rate 16 Blood Pressure 124/87 Pulse Oximetry 99 96 100 Oxygen Delivery Method Room Air 09/26/23 14:39 09/26/23 15:00 09/26/23 15:30 Temperature Pulse Rate 67 68 Respiratory Rate 14 16 Blood Pressure 132/62 Pulse Oximetry 100 100 Oxygen Delivery Method Room Air 09/26/23 15:44 09/26/23 15:45 Temperature Pulse Rate 79 Respiratory Rate 16 Blood Pressure 126/60 Pulse Oximetry 99 Oxygen Delivery Method MDM - Extremity (Nontraumatic) Lab Data 09/26/23 13:25 09/26/23 13:25 Labs: Lab Results 09/26/23 09/26/23 Range/Units 13:25 14:33 WBC 7.1 (4.5-11.0) X10^3/uL RBC 3.41 L (4.5-5.9) X10^6/uL Hgb 7.7 L (13.5-17.5) g/dL Hct 23.7 L (41-53) % MCV 69.5 L (80-100) fL MCH 22.4 L (26-34) PG MCHC 32.3 (30-36) % RDW 18.2 H (11.6-14.8) % Plt Count 182 (150-400) X10^3/uL Neut % (Auto) 88.2 H (50-75) % Lymph % (Auto) 6.3 L (25-40) % [place] % (Auto) 5.1 (3-14) % Eos % (Auto) 0.2 L (2-4) % Baso % (Auto) 0.2 (0-2) % Neut # (Auto) 6300 (6006-4502) /uL Lymph # (Auto) 400 L (4558-6456) /uL [place] # (Auto) 400 (0-900) /uL Eos # (Auto) 0 (0-450) /uL Baso # (Auto) 0 (0-100) /uL RBC Morphology See below Anisocytosis 2+ H Microcytosis 1+ H Target Cells 1+ H Tear Drop Cells 1+ H Ovalocytes 1+ H Schistocytes 1+ H PT 18.2 H (9.4-12.5) SECONDS INR 1.6 H (0.9-1.3) APTT 47 H (25.1-36.5) SECONDS Sodium 133 L (137-145) mmol/L Potassium 3.9 (3.4-5.1) mmol/L Chloride 104 (98-107) mmol/L Carbon Dioxide 27 (22-32) mmol/L BUN 23 H (9-20) mg/dL Creatinine 0.92 (0.66-1.25) mg/dL Estimated GFR > 60 (>60) mL/min BUN/Creatinine Ratio 25.0 H (6-22) Glucose 121 H (70-100) mg/dL Lactate 1.8 (0.7-2.1) mmol/L Calcium 7.9 L (8.4-10.2) mg/dL Total Bilirubin 1.0 (0.2-1.3) mg/dL AST 136 H (17-59) IU/L ALT 83 H (<50) IU/L Alkaline Phosphatase 149 H (38-126) U/L Total Protein 6.7 (6.3-8.2) g/dL Albumin 2.8 L (3.5-5.0) g/dL Globulin 3.9 (1.7-4.1) g/dL Albumin/Globulin Ratio 0.7 L (1.0-2.8) Lipase 100 (23-300) U/L Procalcitonin 4.46 H (<0.5) ng/mL Urine RBC 0-1/hpf (0-5/HPF) Urine WBC 1-5/hpf (0-5/HPF) Ur Squamous Epith Cells 0-1 /hpf (0-5/HPF) Urine Bacteria Many (>30) H (None) Ur Culture Indicated? Specimen cultured Vol Urine Centrifuged 10ml (spun) Urine Dip Bedside Urine Glucose Negative Bedside Urine Bilirubin - Negative Bedside Urine Ketone - Negative Urine Specific [place] 1.010 Bedside Urine Occult Blood - Negative Bedside Urine pH 6.5 Bedside Urine Protein +/- 15 Bedside Urine Urobilinogen - Negative Bedside Urine Nitrite + Positive Bedside Urine Leukocytes +/- 15 Esterase ECG Data Interpretation: Sinus rhythm Ventricular rate [address] T wave changes MDM Narrative Medical decision making narrative: Patient does have what appears to be chronic venous stasis changes in his lower extremities. He does have some redness to the inner portion of the left upper thigh that is warm to the touch. There are no vesicles over this area. He was multiple wounds in various stages of healing around his lower extremities. His labs are unremarkable. He has no chest pain or shortness of breath. Plan will be to discharge patient home on Lasix to try to help with the swelling. Will also put him on antibiotics based on the redness of his left upper thigh. There was no indication for admission to the hospital. I suspect that his wounds and physical exam today are related to his fentanyl abuse. Medications were sent to the pharmacy of his choice after given 1st dose here in the emergency department. Patient was given return precautions. He expressed understanding and agreement. Discharge Plan Departure Patient Disposition: Home Clinical Impression: Bilateral edema of lower extremity Instructions: DI for Peripheral Edema -- Bilateral Activity Restrictions/Additional Instructions: I do recommend that you take the Lasix/furosemide as directed. I did give you 30 days' worth of this medication however if your symptoms improve and short of time than that then you can stop taking this medication when the swelling improves. Take the antibiotics as directed as well. You can contact [phone] to help you establish a primary doctor here in the area. Return to the emergency department for new symptoms Prescriptions: New furosemide [Lasix] 20 mg tablet 20 mg PO DAILY Qty: 30 0RF cephalexin 500 mg capsule 500 mg PO QID 5 Days Qty: 20 0RF Stand Alone Forms: Patient Portal/API
[2023-09-26 15:13] LABS: Bacteria Urine Many (>30); Culture Indicated Urine Specimen Cultured; RBC Urine 0-1/HPF (0-5/HPF); Squamous Epithelial Cell Urine 0-1 /HPF (0-5/HPF); Urine Volume 10mL (spun); WBC Urine 1-5/HPF (0-5/HPF)
[2023-09-26] MEDS: cephALEXin 250 MG CAPSULE 500 MG PO (15:53)
[2023-09-26] MEDS: FUROSEMIDE 40 MG TABLET 20 MG PO (15:54)
== END 2023-09-26 15:57 | disposition home or self-care (01) ==
PROVIDERS: Emergency Provider Emergency Medicine; Family Provider Internal Medicine
DX: R60.0 Localized edema (principal); R79.89 Other specified abnormal findings of blood chemistry
CPT/HCPCS: 71045; 80053; 81003; 81015; 83605; 83690; 84145; 85025; 85610; 85730; 87040; 87077; 87086; 87186; 93005; 93010; 99283; 99284

== ENCOUNTER 2024-01-21 02:14 | Emergency (ER) | payer OTHER, SELFPAY ==
[2023-07-24 16:31] VITALS: BMI 28.0
--- NOTE | 2024-01-21 02:16 | ED.GENADULT ---
HPI - General Adult General Stated complaint: fit for intermediate Time Seen by Provider: 01/21/24 02:16 Source: patient and police Limitations: no limitations History of Present Illness HPI narrative: Patient is a 53-year-old male who comes by police for a fit for confinement. He was also here for legal blood draw. It would like him evaluated because he has bilateral lower extremity edema. Patient states that he has had lower extremity edema for years. He states that sometimes it is worse than others. He was currently wearing compression stockings. No lesions on his legs. His medical record does show that he was had a prescription for Lasix in the past but he does not take Lasix. No shortness of breath. Related Data Previous Rx's Medication Instructions Recorded furosemide 20 mg tablet (Lasix) 20 mg PO DAILY #30 tabs 09/26/23 Allergies Allergy/AdvReac Type Severity Reaction Status Date / Time Sulfa (Sulfonamide Allergy Mild RASH Verified 12/17/21 15:10 Antibiotics) [SULFA (SULFONAMIDE ANTIBIOTICS)] carbidopa [From SINEMET] AdvReac Mild JERKY LEG Verified 12/17/21 15:10 MOVEMENTS levodopa [From SINEMET] AdvReac Mild JERKY LEG Verified 12/17/21 15:10 MOVEMENTS Review of Systems Review of Systems Narrative: See HPI Patient History Medical History GERD (gastroesophageal reflux disease) Anemia, iron deficiency Surgical History No significant past surgical history Social History household members: none Smoking Status: Never smoker Smoking Status: Never smoker alcohol intake frequency: holidays/special occasions only Substance Use Type: heroin, IV drugs and methamphetamine Exam Const General: cooperative and comfortable HENMT Head: normal to inspection Extrem General: edema Medical Decision Making MDM Narrative Medical decision making narrative: Bilateral lower extremity edema that has been present for years. He was not in overt heart failure. Patient can be further evaluated during his period of incarceration or by primary provider when he was released. He was fit for confinement. Discharge Plan Departure Patient Disposition: Home Clinical Impression: Medical clearance for incarceration, Bilateral lower extremity edema Activity Restrictions/Additional Instructions: Hector has been found fit for confinement. He can be further evaluated/treatment during his period of incarceration or by a primary care provider when he he was released. Prescriptions: No Action furosemide [Lasix] 20 mg tablet 20 mg PO DAILY Qty: 30 0RF Stand Alone Forms: Patient Portal/API/Survey
[2024-01-21 02:19] VITALS: BP 162/77; PULSE 72; RESP 18; TEMP 36.4; O2SAT 100; BMI 27.1
== END 2024-01-21 02:30 | disposition home or self-care (01) ==
LOC: ED 02:28
PROVIDERS: Emergency Provider Emergency Medicine; Family Provider Internal Medicine
DX: R60.0 Localized edema (principal); Z00.8 Encounter for other general examination
CPT/HCPCS: 99281